=== PATIENT | female | born 1990 | race Caucasian/White ===

== ENCOUNTER → 2017-11-17 | Outpatient (CLI) | payer BC ==
[~2017-11-17] MED LIST: GADOBUTROL 10 ML VIAL IVP ONE
== END ==
LOC: FIMAGING 09:34
PROVIDERS: ATTEND Internal Medicine Hematology & Oncology
DX: Z15.01 Genetic susceptibility to malignant neoplasm of breast (principal)
CPT/HCPCS: 0159T; A9585; C8908

== ENCOUNTER → 2017-11-18 | Outpatient (CLI) | payer BC | LOC: FIMAGING 09:27 | PROVIDERS: ATTEND Internal Medicine Hematology & Oncology | DX: Z12.31 Encounter for screening mammogram for malignant neoplasm of breast (principal); Z15.01 Genetic susceptibility to malignant neoplasm of breast | CPT/HCPCS: 0159T; A9585; C8908 ==

== ENCOUNTER → 2018-02-01 | Outpatient (CLI) | payer BC | LOC: FIMAGING 11:30 | PROVIDERS: ATTEND Internal Medicine Hematology & Oncology | DX: N63.10 Unspecified lump in the right breast, unspecified quadrant (principal); Z15.01 Genetic susceptibility to malignant neoplasm of breast ==

== ENCOUNTER → 2018-02-03 | Outpatient (CLI) | payer BC ==
[~2018-02-03] MED LIST changes: +BUPIVACAINE 0.5% 10 ML SDV ONE; -GADOBUTROL 10 ML VIAL IVP ONE; +LIDOCAINE 1% 300 MG/30 ML SDV ONE; +THROMBIN (BOVINE) 5,000 UNIT VIAL TP ONE
== END ==
LOC: FIMAGING 07:15
PROVIDERS: ATTEND Internal Medicine Hematology & Oncology
PROC: 0HBT3ZX Excision of Right Breast, Percutaneous Approach, Diagnostic (ICD-10-PCS; principal; 2018-02-03)
DX: C50.911 Malignant neoplasm of unspecified site of right female breast (principal)

== ENCOUNTER 2018-04-16 09:11 | Day surgery (SDC) | payer BC ==
[2018-04-16] MEDS ORDERED: fentaNYL 100 MCG/2 ML INJ IVP PRN (09:20)
[2018-04-16] MEDS ORDERED: FLUMAZENIL 0.5 MG/5 ML MDV IVP PRN (09:20)
[2018-04-16] MEDS ORDERED: MEPERIDINE 25 MG/ML SYR IVP PRN (09:20)
[2018-04-16] MEDS ORDERED: NALOXONE HCL 0.4 MG/ML INJ IVP PRN (09:20)
[2018-04-16] MEDS ORDERED: MIDAZOLAM 2 MG/2 ML VIAL IVP PRN (09:20)
[2018-04-16] MEDS ORDERED: NS 1,000 ML IV SCH (09:30)
[2018-04-16] MEDS ORDERED: LIDOCAINE 1% 300 MG/30 ML SDV ONE (10:16)
[2018-04-16] MEDS ORDERED: CEFAZOLIN 1 GM/DEXTROSE/50 ML BAG IV ONE (10:34)
--- NOTE | 2018-04-16 10:52 | PDPROPOC ---
Sedation Plan of Care Sedation Plan of Care: vital signs stable, mental status noted, patient educated of risks, benefits, alternatives, patient can tolerate sedation ASA Classification: ASA 2 Planned drugs: fentanyl, midazolam Mallampati Score: Class 1 Mallampati Reference Image: Patient passed 3-3-2 rule?: Yes
--- NOTE | 2018-04-16 10:53 | PDRADPRE ---
Radiology History & Physical Indication for procedure: cancer (Breast Cancer. Prefers slimline chest port) Home medications: Dexamethasone 2.5 mg 04/15/18 [Last Taken 04/15/18] Follistim Aq IM 04/15/18 [Last Taken 04/15/18] Letrozole 5 mg 04/15/18 [Last Taken 04/15/18] Menopur IM 04/15/18 [Last Taken 04/16/18] Ganirelix Acetate SC 04/16/18 [Last Taken 04/16/18] Allergies/Adverse Reactions: No Known Allergies Allergy (Verified 04/15/18 09:28) Mental status: A&Ox3 Heart exam: regular rate and rhythm Lungs exam: clear to auscultation Mallampati Score: Class 1
[2018-04-16] MEDS ORDERED: MIDAZOLAM 2 MG/2 ML VIAL ONE (11:47)
[2018-04-16] MEDS ORDERED: ACETAMINOPHEN 325 MG TAB PO PRN (12:29)
[2018-04-16] MEDS ORDERED: ONDANSETRON 4 MG/2 ML VIAL IVP PRN (12:29)
--- NOTE | 2018-04-16 12:29 | PDRADPN ---
Radiology Procedure Note Date of Procedure: 04/16/18 Radiologist: Adolfo Ocasio Anesthesia: IV Sedation Pre-op Diagnosis: Breast CA Post-op Diagnosis: Breast CA Indication: Breast CA Procedure: Chest port Finding(s): Patent left IJ. 6 Fr slimline chest POWER port placed without complication. Deep and running subcuticular closure with absorbable suture. OK to use now. Inf/Abcess present in the surg proc area at time of surgery?: No
[2018-04-16 13:14] VITALS: BP 118/70
[2018-04-16] MEDS ORDERED: BUPIVACAINE 0.5% 30 ML SDV ONE (13:51)
== END 2018-04-16 13:36 | disposition home or self-care (01) ==
LOC: FIMAGING 09:11
PROVIDERS: ATTEND Internal Medicine Hematology & Oncology
PROC: B5191ZZ Fluoroscopy of Inferior Vena Cava using Low Osmolar Contrast (ICD-10-PCS; principal; 2018-04-16 12:40)
PROC: B544ZZA Ultrasonography of Left Jugular Veins, Guidance (ICD-10-PCS; principal; 2018-04-16 12:40)
PROC: 0JH60XZ Insertion of Tunneled Vascular Access Device into Chest Subcutaneous Tissue and Fascia, Open Approach (ICD-10-PCS; principal; 2018-04-16 12:40)
PROC: 02HV33Z Insertion of Infusion Device into Superior Vena Cava, Percutaneous Approach (ICD-10-PCS; principal; 2018-04-16 12:40)
DX: C50.919 Malignant neoplasm of unspecified site of unspecified female breast (principal)
CPT/HCPCS: 36561; 77001; C1769; C1750; J0690; J1200; J1642; J2250; J2310; J3010

== ENCOUNTER 2018-06-14 18:06 | Inpatient (IN) | payer BC ==
[2018-06-14] MEDS ORDERED: VANCOMYCIN HCL/NORMAL SALINE 250 ML IV ONE (18:51)
[2018-06-14] MEDS ORDERED: CEFEPIME HCL 1 GM in NS 50 ML IV ONE (18:51)
--- NOTE | 2018-06-14 18:52 | EDPHY ---
HPI/HX/ROS/PE/MDM Narrative: CHIEF COMPLAINT: Fever HPI: The patient is a 28-year-old female with a history of breast cancer. She is currently on chemotherapy with Adriamycin and Cytoxan. She developed a low- grade fever at home today and was seen at the in [facility] office. That time she was found to have an extremely low white blood cell count and numerous labs and cultures were sent. She was given oral Levaquin and sent home. Upon arrival at home earlier today she developed fevers and chills then developed a temperature to 104 degree F. She was then told to present to the ER. Patient states that she has no new symptoms but has been having gradually increasing redness of the lateral aspect of her right mastectomy scar which has been progressing for multiple weeks. No discharge. The patient states that her son has a cough. REVIEW OF SYSTEMS: Aside from elements discussed in the HPI, a comprehensive 10-point review of systems was reviewed and is negative. PMH: Includes breast cancer, BRCA gene, history of bilateral mastectomy SOCIAL HISTORY: . Denies drug abuse. PHYSICAL EXAM: General:Patient is alert, in no acute distress. ENT:Eyes are normal to inspection. ENT inspection normal. Neck: Normal inspection. Full range of motion. Respiratory:No respiratory distress. Breath sounds normal bilaterally. Cardiovascular: Regular rate and rhythm. Strong peripheral pulses. Normal cap refill. Abdomen:The abdomen is nontender to palpation. There are no peritoneal signs. There are normal bowel sounds. Back: Normal to inspection. No tenderness to palpation. Skin: Right-sided mastectomy scar is clean dry and intact but there is some mild erythema and induration to the lateral aspect with very mild patchy rash lateral to the scar. No discharge noted. Extremities: Normal appearance. Full range of motion. Neuro: Oriented x3. Normal motor function. Normal sensory function. MDM: This patient presents with neutropenic fever. As such she requires admission the hospital for further workup and broad-spectrum antibiotics. I did not send additional labs as a full panel was drawn earlier today. I did order respiratory PCR and have ordered empiric antibiotics. The patient was accepted for admission by Dr. Carrie Edwards at 6:45 p.m. General Time Seen by Provider: 06/14/18 18:24 Initial Vital Signs: Initial Vital Signs Temperature (C) 38.9 C H 06/14/18 18:14 Heart Rate 102 H 06/14/18 18:14 Respiratory Rate 18 06/14/18 18:14 Blood Pressure 113/66 06/14/18 18:14 O2 Sat (%) 95 06/14/18 18:14 O2 Delivery Mode Room Air Allergies/Adverse Reactions: No Known Allergies Allergy (Verified 06/14/18 18:13) Home Medications: Medication Instructions Recorded Cyclophosphamide [Cytoxan] 0 mg IV AD 06/14/18 Doxepin HCl [SINEquan 10 MG (*)] 10 mg PO HS 06/14/18 Doxorubicin HCl [Adriamycin] 0 mg IV AD 06/14/18 LORazepam [Ativan (*)] 1 mg PO DAILY PRN 06/14/18 Ondansetron [Ondansetron Odt] 4 mg PO Q6 PRN 06/14/18 Prochlorperazine Maleate 10 mg PO Q6 PRN 06/14/18 [Compazine 10mg (*)] Departure - Departure Disposition: [facility] Clinical Impression: Neutropenic fever Condition: Fair
[2018-06-14] MEDS ORDERED: LORazepam 0.5 MG TAB PO PRN (19:58)
[2018-06-14] MEDS ORDERED: ONDANSETRON DISINTEGRATING 4 MG TAB PO PRN (19:58)
[2018-06-14] MEDS ORDERED: HYDROmorphONE/DILAUDID 1 MG/ML INJ IVP PRN (19:58)
[2018-06-14] MEDS ORDERED: LORazepam 1 MG TAB PO PRN (20:00)
[2018-06-14] MEDS ORDERED: PROCHLORPERAZINE MALEATE 10 MG TAB PO PRN (20:00)
[2018-06-14] MEDS ORDERED: ONDANSETRON 4 MG/2 ML VIAL ONE (20:11)
[2018-06-14] MEDS: ONDANSETRON 4 MG/2 ML VIAL IVP PRN (20:12)
[2018-06-14] MEDS: ACETAMINOPHEN 325 MG TAB PO PRN (21:44)
[2018-06-14] MEDS: IBUPROFEN 200 MG TAB PO PRN (22:40)
[2018-06-14] MEDS: DOXEPIN HCL 10 MG CAP PO SCH (22:40)
--- NOTE | 2018-06-14 22:44 | PDGENHP ---
History and Physical - Chief Complaint fever - History of Present Illness Patient is a 28 yo F with PMH of breast cancer and BRCA mutation presenting with fever to 104 at home. Patient was seen earlier in the ER for similar issues , but at that time her temperature was only mildly elevated, she went home and proceeded to get worse with fever increasing to 104. She notes she completed her 4th round of chemo with adriamycin/cytoxan 6 days ago and has felt worse this time than her prior bouts of chemo, she notes each cycle was slightly worse than the one before. She has not had any pain, no cough or sob, no rash, no abd pain or n/v. She denies changes in urination or bowel movements. She did have shaking chills earlier in the day and has been having intermittent GUIDO when the fever spikes. She has been eating and drinking ok. History Information - Allergies/Home Medication List Allergies/Adverse Reactions: No Known Allergies Allergy (Verified 06/14/18 18:13) Home Medications: Cyclophosphamide [Cytoxan] 0 mg IV AD 06/14/18 [Last Taken 06/07/18] Doxepin HCl [SINEquan 10 MG (*)] 10 mg PO HS 06/14/18 [Last Taken 06/13/18] Doxorubicin HCl [Adriamycin] 0 mg IV AD 06/14/18 [Last Taken 06/07/18] LORazepam [Ativan (*)] 1 mg PO DAILY PRN 06/14/18 [Last Taken Unknown] Ondansetron [Ondansetron Odt] 4 mg PO Q6 PRN 06/14/18 [Last Taken 06/13/18] Prochlorperazine Maleate [Compazine 10mg (*)] 10 mg PO Q6 PRN 06/14/18 [Last Taken 06/14/18] I have personally reviewed and updated: family history, medical history, social history, surgical history - Past Medical History cancer (breast ) - Surgical History Reports: mastectomy (bilateral with LN disection) - Family History Positive for: non-pertinent - Social History Smoking Status: Never smoked Alcohol Use: None Drug Use: None Additional social history: , 2 year old child Review of Systems Review of Systems: ROS: 10pt was reviewed & negative except for what was stated in HPI & below Physical Exam Physical Exam: Temp Pulse Resp BP Pulse Ox 39.6 C H 96 16 114/66 98 11/05/18 21:27 06/14/18 21:27 06/14/18 21:27 06/14/18 21:27 06/14/18 21:27 Constitutional: no apparent distress, appears nourished Eyes: PERRL, anicteric sclera Ears, Nose, Mouth, Throat: moist mucous membranes, hearing normal Cardiovascular: regular rate and rhythym, no murmur, rub, or gallop, No edema Respiratory: no respiratory distress, no rales or rhonchi, clear to auscultation Gastrointestinal: normoactive bowel sounds, soft, non-tender abdomen Genitourinary: no bladder tenderness Skin: warm, normal color Musculoskeletal: full muscle strength, no muscle tenderness Neurologic: AAOx3 Psychiatric: interacting appropriately, not anxious, not encephalopathic Assessment & Plan Assessment: Neutropenic fever (Acute) 28 yo F with breast cancer currently undergoing chemotherapy presenting with neutropenic fevere # neutropenic fever: with ANC of 0.03 and fever to 104 at home, no localizing sxs. Cultures drawn earlier in the day, resp pcr negative UA negative, chest xray not yet taken but ordered and pending. Patient is followed by Dr. Lee of oncology who is aware of her hospitalization and onc will follow while in house. Started on vanc/cefepime for now. Patient non toxic appearing # sepsis: patient meeting criteria for sepsis with fever and low wbc, as above source unclear but treating broadly, cultures pending, HD stable # breast cancer: with hx of bilateral mastectomy s/p reconstruction, currently undergoing chemo with adriamycin and cytoxan as above # anemia: related to chemo as well, will trend, not currently in need of transfusion # IP status, will require > 48 hours stay for eval/mgmt of above Patient new to my care. Old records reviewed and summarized as above. Care plan reviewed with ER doctor. Further hx obtained from patients present at bedside.
[2018-06-15] MEDS: NS 1,000 ML IV SCH ×2 (00:35→18:15)
[2018-06-15] MEDS: CEFEPIME HCL 2 GM in NS 100 ML IV SCH ×3 (04:40→20:10)
[2018-06-15] MEDS: ACETAMINOPHEN 325 MG TAB PO PRN ×4 (04:49→20:09)
[2018-06-15 05:16] LABS: PLATELET COUNT 127 10^3/uL (150-400)
[2018-06-15] MEDS ORDERED: VANCOMYCIN 750 MG in D5W 150 ML IV SCH (07:00)
[2018-06-15] MEDS: IBUPROFEN 200 MG TAB PO PRN ×3 (07:51→23:05)
--- NOTE | 2018-06-15 08:09 | PDMN ---
Medical Necessity Medical necessity: MCG: M160 sepsis and other febrile illness: Neutopenic fever , sepsis, HX of Br. Ca, currently on chemo, anemia, anticipate > 2 MN ongoing med nec care
[2018-06-15] MEDS: oxyCODONE IR 5 MG TAB PO PRN (08:43)
[2018-06-15] MEDS: ONDANSETRON 4 MG/2 ML VIAL IVP PRN ×2 (08:54→20:52)
[2018-06-15] MEDS: HYDROCODONE/APAP 5/325 TAB PO PRN ×2 (08:55→15:04)
--- NOTE | 2018-06-15 11:30 | GCON ---
REASON FOR CONSULTATION: Neutropenic fever in the setting of adjuvant therapy for breast cancer. HISTORY OF PRESENT ILLNESS: The patient is a very pleasant 28-year-old female with who carries a BRCA mutation and is currently undergoing adjuvant chemotherapy for stage I breast cancer and now admitted with neutropenic fever. Monica was diagnosed with a stage IA (T1c N0 M0) invasive ductal carcinoma in November 2017. The tumor was grade 3, ER positive, UT negative, and HER2 negative with a Ki-67 of 80%. She underwent bilateral mastectomies with sentinel node biopsy on March 12 and had direct implant reconstruction. Her surgery was done in [place]. Four sentinel lymph nodes were sampled and were negative. She started on dose dense AC Taxol on April 26. She is currently day 8, cycle 4, of Adriamycin and Cytoxan. She tolerated the first 3 cycles relatively well without any major cytopenias. She was seen in the office yesterday with a 1-day history of a slight sore throat and just generally feeling slightly ill. Her temperature was 99.2. She was noted to have a white blood cell count of 0.3 with an absolute neutrophil count of 0. She was given hydration, cultured, and started on empiric prophylactic Levaquin. Later that evening she developed a fever of 104.0. She was referred to the emergency room. In the emergency room, she did not receive any additional cultures. A chest x-ray was unremarkable. She was started on vancomycin and cefepime. Overnight, the patient has continued to have high fevers up to 104. She is very diaphoretic. She has a bit of a scratchy throat and a little bit of a headache. She denies any shortness of breath or cough, diarrhea, dysuria, or any other localizing symptoms. She has a 2-1/2-year-old son who has a mild illness at home, but is not on antibiotics, and he felt to presumably have a viral infection. She was tested for influenza yesterday in the office, as well as strep, all of which were negative. A urinalysis in the office was negative as well. The only finding that might be slightly different is she has noted some very minimal erythema along the far lateral aspect of her right mastectomy incision. There is no purulence. No fluctuance. She and her took a photo of it a day or two ago, and to my eye, it does not look significantly different. PAST MEDICAL HISTORY: Unremarkable. PAST SURGICAL HISTORY: Bilateral mastectomies with sentinel node sampling. FAMILY HISTORY: Notable for Mother having breast cancer at age 47 and ovarian cancer in her 60s. Her mother is a BRCA1 carrier. A maternal grandfather had some type of unknown cancer. SOCIAL HISTORY: The patient does not smoke. She is . She drinks alcohol occasionally. She lives in [place]. She has a 2-year-old son. REVIEW OF SYSTEMS: A 10-point review of systems is negative, other than HPI. PHYSICAL EXAM: GENERAL: She is an uncomfortable-appearing female, lying in bed , somewhat diaphoretic. VITAL SIGNS: Blood pressure 106/53, heart rate 105, temperature 39.5. HEENT: Pupils are equal. Sclerae anicteric. Oropharynx is clear, without mucositis or thrush. LUNGS: Clear to auscultation. HEART: Regular rate. ABDOMEN: Soft, nontender. CHEST: Bilateral mastectomy incisions without erythema, other than some very mild erythema on the far lateral aspect of the right incision. It is nontender to palpation. EXTREMITIES: No edema. Port site is unremarkable. LABORATORY DATA: White blood cell count 0.2, hematocrit 23.9, platelets 127. Absolute neutrophil count is 0. Metabolic panel is negative. IMPRESSION: This is a 28-year-old BRCA1 carrier with early stage I breast cancer, admitted now with neutropenic fever, day 8, cycle 4 of Adriamycin and Cytoxan. The patient's son is ill at home, possibly with a viral infection. There are no specific localizing signs or symptoms, other than a mild sore throat, headache, and some very mild erythema along the lateral aspect of her right mastectomy incision. She has been pancultured and started on broad- spectrum antibiotics. Flu swab and strep swabs were negative yesterday in the office. The patient is hemodynamically stable, albeit quite uncomfortable with these high fevers. Infectious Disease has been asked to consult. For now, will continue on vancomycin and cefepime. The erythema at the mastectomy site needs to be carefully monitored, especially as the white blood cell count recovers. We will continue to follow along with you. /[id number]/MODL MTDD
--- NOTE | 2018-06-15 14:04 | HOSPPROG ---
Hospitalist Progress Note Assessment/Plan: 28 yo F with breast cancer currently undergoing chemotherapy presenting with neutropenic fevere # neutropenic fever: with ANC of 0.01 today and continued fever overnight. Cultures with ngtd, resp pcr negative UA negative, cxr personally reviewed and negative. Continued on vanc/cefepime for now. Care plan reviewed with Dr. Lee including plan for ID consult. # sepsis: patient meeting criteria for sepsis with fever and low wbc, as above source unclear but treating broadly, cultures pending, HD stable # breast cancer: with hx of bilateral mastectomy s/p reconstruction, currently undergoing chemo with adriamycin and cytoxan as above # anemia: related to chemo as well, trending # IP status, will require > 48 hours stay for eval/mgmt of above Subjective: patient continues to feel poorly with fevers overnight but no new sxs, no cough, sob, urinary complaints Objective: Vital Signs Temp Pulse Resp BP Pulse Ox 36.9 C 87 14 91/55 L 98 06/15/18 11:12 06/15/18 11:12 06/15/18 11:12 06/15/18 11:12 06/15/18 11:12 Microbiology 06/14/18 19:00 Respiratory Panel (PCR) - Final Nasal, Sinus - Swab No Organism Detected Laboratory Results 06/15/18 04:39 06/15/18 04:39 06/14/18 06/15/18 06/16/18 05:59 05:59 05:59 Intake Total 783 Output Total 1500 Balance -717 Constitutional: no apparent distress, appears nourished Eyes: PERRL, anicteric sclera Ears, Nose, Mouth, Throat: moist mucous membranes, hearing normal Cardiovascular: regular rate and rhythym, no murmur, rub, or gallop, No edema Respiratory: no respiratory distress, no rales or rhonchi, clear to auscultation Gastrointestinal: normoactive bowel sounds, soft, non-tender abdomen Genitourinary: no bladder tenderness Skin: warm, normal color Musculoskeletal: full muscle strength, no muscle tenderness Neurologic: AAOx3 Psychiatric: interacting appropriately, not anxious, not encephalopathic ICD10 Worksheet Patient Problems: Problems Problem Status Onset Neutropenic fever Acute
--- NOTE | 2018-06-15 14:25 | ASMTCMCOM ---
CM Note CM Note Notes: Chart reviewed. 28 year old female with dx of breast ca s/p mastectomy and presents with neutropenic fever after 4rth round of chemotherapy. No identified needs at this time. CM to follow for needs. Plan: Likely dc home independently when medically cleared. Date Signed: 06/15/2018 02:25 PM Electronically Signed By:Imelda Wood RN
--- NOTE | 2018-06-15 16:32 | GCON ---
INFECTIOUS DISEASE CONSULTATION DATE OF CONSULTATION: 06/15/2018 REFERRING PHYSICIAN: Liv Lee MD REASON FOR CONSULTATION: Neutropenic fever. HISTORY OF PRESENT ILLNESS: Patient is a 28-year-old female with a past medical history of breast ca ncer, status post bilateral mastectomy with immediate reconstruction in early March who I am asked t o see in consultation for neutropenic fever. The patient has been receiving chemotherapy with Adriam ycin and Cytoxan of which she recently completed her fourth cycle. She received Neulasta with her emotherapy. She has not had previous episodes of neutropenia. Yesterday, patient was seen in the office with a 1-day history of fatigue, malaise, and mild sore thr oat. At that time, she had a temperature of 99.2. Laboratory evaluation revealed the presence of ne utropenia. The patient received hydration and was started on empiric levofloxacin. After returning home, she developed a fever to 104 prompting admission to the hospital. She did not initiate levoflo xacin as her fever onset preceding ability to do so. Evaluation, included blood cultures in the office yesterday, which are no growth to date. She had in fluenza testing by PCR and respiratory pathogen panel by PCR were both negative. Chest x-ray showed no infiltrates. She was started empirically on vancomycin and cefepime. The patient does have a por t in the left upper chest without pain, redness, or drainage. She does describe having approximately 2 days of pain over her lateral right breast incision with associated erythema. She felt like she c ould see a stitch, but this is no longer visible. She has not had any active drainage. The area is mildly tender to palpation. She does have a 2-1/2-year-old son who has had a mild cold at home. He does attend daycare. She najera s not describe dysuria or difficulty with urination. She has had nausea with some vomiting, but no d iarrhea. No abdominal pain. She has not noted diffuse skin rash. She does have significant rigors associated with her fever, which has frequently been in the 39 degree range post-hospitalization. Gi martha the above findings, I am now asked to assist in her ongoing management. PAST MEDICAL HISTORY: Breast cancer as above, BRCA1 carrier. PAST SURGICAL HISTORY: Bilateral mastectomy with reconstruction and sentinel lymph node biopsy on right. CURRENT MEDICATIONS: Vancomycin 1 g IV q.12 hours, cefepime 2 g IV q.8 hours, doxepin 10 mg p.o. q.h .s., Motrin as needed for fever, [place] as needed for pain or fever, Tylenol as needed for fever. ALLERGIES: No known drug allergies. SOCIAL HISTORY: Patient does not smoke. She previously used alcohol once per week. She does use me dical marijuana. There is a pet dog at home with no bites or scratches. No recent travel history. FAMILY HISTORY: Mother with breast and ovarian cancer. REVIEW OF SYSTEMS: Outside that noted in the HPI, the remainder of 10-system review is unremarkable. PHYSICAL EXAMINATION: VITAL SIGNS: Temperature maximum 39.5, temperature current 36.9, heart rate 8 7, respiratory rate 14, blood pressure 91/55, oxygen saturation 98% on room air. GENERAL: Patient i s ill-appearing with rigors. HEENT: There is no scleral icterus, conjunctival injection, or conjunc tival petechiae. Oropharynx shows moist mucous membranes with no mucositis. Difficult to visualize tonsils and patient cannot tolerate exam with tongue depressor. No nasal discharge. No sinus tender ness. NECK: Supple without palpable lymphadenopathy or thyromegaly. CHEST: Clear to auscultation bilaterally without adventitious sounds. Respiratory effort is normal. There is a port in the left upper chest without erythema, drainage or tenderness. CARDIOVASCULAR: Tachycardic, with a 2/6 systo lic ejection murmur heard at the left and right upper sternal border. No gallops or rubs noted. RYAN ASTS: Right lateral breast incision with small area of erythema and shallow ulceration; no visible s utures; no palpable fluctuance or drainage. Mildly tender to palpation. There are 2 patches of eryt bonnie in the right lateral chest wall, which are nontender. Axillary incision is well healed. MUSCUL OSKELETAL: No cyanosis, clubbing, or edema. SKIN: See breast exam. No stigmata of endocarditis. Skin is diffusely warm to palpation. BACK: No tenderness along the cervical, thoracic, or lumbosacr al spine. No flank tenderness. NEUROLOGIC: Patient is alert and interacts appropriately with the e xaminer. Cranial nerves 2-12 are grossly intact. Sensation is grossly intact. Muscle tone and bulk are normal. LYMPHATIC: No cervical or supraclavicular nodes palpable. No tenderness in right axil la. LABORATORY/IMAGING: White blood cell count 0.26, hematocrit 23.9, platelets 127, neutrophils 4%, lym phocytes 69%. Venous lactate 1.6. Creatinine 0.6. AST 17, ALT 24, alkaline phosphatase 80, bilirub in 0.4, albumin 4.0. Influenza PCR is negative. Respiratory pathogen PCR is negative. Urinalysis i s negative. Group A strep screen and DNA are negative. Blood cultures x2 sets from 06/14/2018, and 06/15/2018, are currently pending. Chest x-ray shows no focal infiltrate. IMPRESSION: Neutropenic fever: Typical considerations for neutropenic fever, including gram-negativ e rods or gram-positive ang with potential for concomitant bacteremia of consideration. The patien t does have an indwelling port in place raising potential for line associated infection, although sit e does not show any findings. Additionally, she has mild area of erythema and tenderness along right lateral breast incision, which could serve as focal nidus for infection. If patient has persistent fever or this shows further inflammatory change, we will proceed with ultrasound to assess for any un derlying fluid collections. Agree as outlined by Dr. Lee, this potentially could worsen as neutro phils recover. She is currently covered broadly with vancomycin, cefepime, which provides activity f or both gram-positive and gram-negative ang typically associated with neutropenic fever. Viral syn drome also would be of consideration. RECOMMENDATIONS: 1. Agree with continued vancomycin and cefepime. 2. Follow up blood cultures as available. 3. Follow right breast exam with plans for ultrasound if persistent fever of unidentified etiology a nd persistent breast symptomatology. 4. Recovery of absolute neutrophil count will be of critical importance in resolution of neutropenic fever. Thank you for this consultation. We will continue to follow the patient with you. /[id number]/MODL
[2018-06-15] MEDS: VANCOMYCIN HCL/NORMAL SALINE 250 ML IV SCH (18:43)
[2018-06-15] MEDS: DOXEPIN HCL 10 MG CAP PO SCH (20:09)
[2018-06-15] MEDS: PROMETHAZINE HCL 25 MG/ML INJ IVP PRN (22:07)
[2018-06-16] MEDS: IBUPROFEN 200 MG TAB PO PRN ×3 (03:22→19:59)
[2018-06-16] MEDS: ONDANSETRON 4 MG/2 ML VIAL IVP PRN (03:27)
[2018-06-16] MEDS: NS 1,000 ML IV SCH ×3 (03:33→23:56)
[2018-06-16] MEDS: PROMETHAZINE HCL 25 MG/ML INJ IVP PRN ×3 (03:40→18:01)
[2018-06-16] MEDS: CEFEPIME HCL 2 GM in NS 100 ML IV SCH ×3 (04:19→12:18)
[2018-06-16] MEDS: LORazepam 2 MG/ML INJ IVP PRN ×4 (05:27→19:48)
[2018-06-16] MEDS: ACETAMINOPHEN 325 MG TAB PO PRN (05:27)
[2018-06-16 06:20] LABS: PLATELET COUNT 116 10^3/uL (150-400)
[2018-06-16] MEDS: VANCOMYCIN HCL/NORMAL SALINE 250 ML IV SCH ×2 (08:21→19:14)
--- NOTE | 2018-06-16 11:47 | HOSPPROG ---
Hospitalist Progress Note Assessment/Plan: 28 yo F w breast CA here w febrile neutropenia 28 yo F with breast cancer currently undergoing chemotherapy presenting with neutropenic fevere neutropenic fever: with ANC of 0.01 today and continued fever overnight. Cultures with ngtd, resp pcr negative UA negative, cxr personally reviewed and negative. Continued on vanc/cefepime for now. Care plan reviewed with Dr. Lee ID seing stitch abscess: chronic, warm (but shis febrile) will have surgery see briefly sepsis: patient meeting criteria for sepsis with fever and low wbc, as above source unclear but treating broadly, cultures pending, HD stable breast cancer: with hx of bilateral mastectomy s/p reconstruction, currently undergoing chemo with adriamycin and cytoxan as above anemia: related to chemo as well, trending IP status, will require > 48 hours stay for eval/mgmt of above Subjective: case d/w dr lee. remains febrile. culture data neg thus far Objective: Vital Signs Temp Pulse Resp BP Pulse Ox 39.2 C H 107 H 16 112/72 96 06/16/18 10:39 06/16/18 10:39 06/16/18 10:39 06/16/18 10:39 06/16/18 10:39 Laboratory Results 06/16/18 05:45 06/15/18 04:39 06/15/18 06/16/18 06/17/18 05:59 05:59 05:59 Intake Total 783 2300 Output Total 1500 905 Balance -717 1395 - Physical Exam Constitutional: no apparent distress, appears nourished Eyes: PERRL, anicteric sclera Ears, Nose, Mouth, Throat: moist mucous membranes, hearing normal Cardiovascular: no murmur, rub, or gallop, tachycardia Respiratory: no respiratory distress, no rales or rhonchi Gastrointestinal: normoactive bowel sounds, soft, non-tender abdomen Genitourinary: no bladder fullness, No astudillo in urethra Skin: other (R breast w small nodular area- has been there a bit. no cellulitis , warm) Musculoskeletal: full muscle strength, no muscle tenderness Neurologic: AAOx3 Psychiatric: interacting appropriately, not anxious ICD10 Worksheet Patient Problems: Problems Problem Status Onset Neutropenic fever Acute
--- NOTE | 2018-06-16 12:08 | PCMIDPN ---
Assessment/Plan: Assessment/Plan: * Neutropenic fever: Persistent fever with ongoing neutropenia. Small amount of purulence expressed from lateral right breast incision. Purulent material sent for culture. Will proceed with ultrasound of this region to assess for deeper seated fluid collection along incision line or around implants. Agree with surgical consultation as well. Patient also with some nausea and limited abdominal cramping which has resolved - if abdominal cramping recurs or persists , then would proceed with CT of abdomen and pelvis to assess for neutropenic enterocolitis. Will continue empiric vancomycin and in transition cefepime to meropenem for added anaerobic activity (favor this over addition of metronidazole given patient's nausea). Vancomycin trough less than 5 but this was measured after 2 doses of 750 mg q.12 and 1 dose of 1 g. Will therefore repeat after patient has been receiving 1 g Q 12 more regularly. Blood cultures remain no growth including those obtained on 06/14/2018 at [facility]. Time spent, greater than 35 min, which greater than half was spent in education/ counseling/coordination of care related to neutropenic fever and plan of care including breast ultrasound and modification of antibiotic therapy. Clinical findings and plan were reviewed with patient and Dr. Mendoza as well as nursing staff. 06/16/18 12:05 06/16/18 12:22 06/16/18 12:23 06/16/18 12:25 Subjective: Patient with less discomfort around right breast incision. Complains of ongoing fever and rigors. Complains of vomiting beginning last evening. Patient describes 2 episodes of mild crampy abdominal pain which is now resolved. Objective: Vital Signs Temp Pulse Resp BP Pulse Ox 37.8 C 125 H 18 111/61 93 06/16/18 11:46 06/16/18 11:46 06/16/18 11:46 06/16/18 11:46 06/16/18 11:46 Laboratory Results 06/16/18 05:45 06/15/18 04:39 06/15/18 06/16/18 06/17/18 05:59 05:59 05:59 Intake Total 783 2300 Output Total 1500 905 Balance -717 1395 Vancomycin # 2 Ceftriaxone # 2 Vancomycin trough less than 5 Blood cultures x2 06/14 and 06/15 no growth to date - Physical Exam General Appearance: alert, no apparent distress, non-toxic, other (Fatigued appearance) EENT: No scleral icterus, No thrush, No conjunctival petechiae Respiratory: lungs clear, other (Port nontender without erythema), No respiratory distress Cardiac/Chest: tachycardia Extremities: inflammation (Small scab over left index finger without tenderness) Abdomen: non-tender, No distended Skin: other (Flushed appearance over chest and abdomen) Neuro/Psych: No confused ICD10 Worksheet Patient Problems: Problems Problem Status Onset Neutropenic fever Acute
[2018-06-16] MEDS: MEROPENEM 1 GM in NS 100 ML IV SCH ×3 (12:54→21:32)
[2018-06-16] MEDS: ACETAMINOPHEN 500 MG TAB PO SCH ×2 (14:11→21:31)
--- NOTE | 2018-06-16 15:18 | SOAPPROG ---
SOAP Progress Note Assessment/Plan: A/P: * Neutropenic fever: ?skin source (right breast). May see more manifestations as WBC recovers. - recd Neulasta - cont broad spectrum abx - f/u would GS/cx - watch perirectal area * St. IA (T1c) breast cancer, ER+/HER2 neg. C4D9 DD AC with Neulasta. ANC should start recovering soon. * Nausea: antiemetics. * BRCA carrier. 06/16/18 15:22 Subjective: Continued nausea, particularly with port use. Some perirectal tenderness. No significant mucositis. No diarrhea. O: VS reviewed. Tm 39.2 Gen: A&O, fatigued appearing. Lungs: CTA. Abd: nontender, soft. Rectal: sl tenderness 5:00, likely hemorrhoid tag 6:00. Neuro: nonfocal. Skin: left port nontender. Breast: right lateral mastectomy incision with mild induration. Laboratory Tests 06/15/18 06/16/18 04:39 05:45 WBC 0.34 L* Hgb 8.1 L Plt Count 116 L Sodium 136 Potassium 4.0 Chloride 105 Carbon Dioxide 22 BUN 9 Creatinine 0.6 Glucose 105 H Objective: Vital Signs Temp Pulse Resp BP Pulse Ox 38.7 C H 104 H 16 100/62 96 06/16/18 14:14 06/16/18 14:14 06/16/18 14:14 06/16/18 14:14 06/16/18 14:14 Laboratory Results 06/16/18 05:45 06/15/18 04:39 06/15/18 06/16/18 06/17/18 05:59 05:59 05:59 Intake Total 783 2300 Output Total 1500 905 600 Balance -717 1395 -600 ICD10 Worksheet Patient Problems: Problems Problem Status Onset Neutropenic fever Acute
--- NOTE | 2018-06-16 16:17 | PDCONSULT ---
Straw Boss Note: 28 y/o female admitted for neutropenic fever after her fourth cycle of AC for a stage I right breast cancer. She is s/p bilateral nipple sparing mastectomy with Alloderm reconstruction in March and her drains came out 2 weeks post op. She noticed a suture protruding from the right lateral reconstruction incision and contacted her plastic surgeon and was instructed to leave it alone. She denies pain in her reconstructed breast but has pain in the lateral inframammary fold on the right. PE T 38.7 P 100 R 14 slender young woman in mild distress/ at her bedside focused right breast exam: NSM/implant recon 1 x 1.5 cm area of erythema, induration with a small central pinpoint opening, clear fluid can be expressed the skin was prepped with chlorhexidine and the opening gently probed with a pair of forceps, no suture material identified remainder of breast reconstruction nicely healed wbc <.5 ultrasound: no fluid collection Imp: superficial right inframammary skin infection adjacent to prior breast reconstruction/possibly started as a suture granuloma. Rec: continue IV Abx per ID consult plastic surgery if infection worsens as she is at high risk for implant loss Oswald Pardo MD, FACS
--- NOTE | 2018-06-16 18:20 | GDS ---
REASON FOR CONSULTATION: 1. Neutropenic fever, status post bilateral nipple-sparing mastectomies for breast cancer. 2. Right inferior lateral breast stitch abscess. BRIEF CLINICAL HISTORY: The patient is a 28-year-old white female who recently moved from the [facility] [place] after undergoing a bilateral nipple-sparing mastectomy with immediate implant and AlloDerm recon struction. She had been doing well. She is undergoing chemotherapy here under the care of Dr. Liv Lee. She was admitted with neutropenic fever yesterday. General Surgery was consulted secondary to a small suture abscess that the patient has been monitoring but has recently become more inflamed. I was contacted earlier by Dr. Randolph Pardo, to participate in her care. She is currently admitted a nd undergoing neutropenic precautions and workup for her fever. On examination, the breast reconstru ction appears uninvolved at this time, but she appears to have a small suture granuloma at the inferi or right aspect of her incision that is not contiguous with it or appears to be spreading to the impl ant pocket. Given her immunocompromised position and the nonthreatening nature of the suture abscess , I will plan to deal with this once she has recovered on an outpatient basis. She can follow up at my office upon discharge and I will plan to I and D the area under local anesthesia in the office. I f her condition is worse in the breast, as to turn red, or she has other clinical changes, we could c onsider earlier I and D of the lesion. However, I think this would put her breast reconstruction at a greater risk of long-term compromise. She was given my contact information for my office as well a s my cell phone and will contact me upon discharge to arrange future followup. /[id number]/MODL
[2018-06-16] MEDS: SENNOSIDES 1 TAB PO SCH (19:59)
[2018-06-16] MEDS: DOCUSATE SODIUM 100 MG CAP PO SCH (19:59)
[2018-06-16] MEDS: DOXEPIN HCL 10 MG CAP PO SCH (19:59)
[2018-06-16] MEDS: NYSTATIN SUSP 500000 UNIT/5 ML UD LIQ PO SCH (21:32)
[2018-06-17] MEDS: PROMETHAZINE HCL 25 MG/ML INJ IVP PRN ×2 (02:25→11:56)
[2018-06-17] MEDS: NYSTATIN SUSP 500000 UNIT/5 ML UD LIQ PO SCH ×4 (02:59→21:02)
[2018-06-17] MEDS: LORazepam 2 MG/ML INJ IVP PRN ×3 (03:06→21:01)
[2018-06-17] MEDS: IBUPROFEN 200 MG TAB PO PRN ×2 (03:10→11:57)
[2018-06-17] MEDS: MEROPENEM 1 GM in NS 100 ML IV SCH ×3 (04:52→22:19)
[2018-06-17] MEDS: ACETAMINOPHEN 500 MG TAB PO SCH ×3 (04:55→21:02)
[2018-06-17 05:40] LABS: PLATELET COUNT 116 10^3/uL (150-400)
[2018-06-17] MEDS: VANCOMYCIN HCL/NORMAL SALINE 250 ML IV SCH (06:28)
[2018-06-17] MEDS: ONDANSETRON 4 MG/2 ML VIAL IVP PRN (06:31)
--- NOTE | 2018-06-17 08:02 | PCMIDPN ---
Assessment/Plan: #Neutropenic fever, febrile this a.m. to 39.4 ANC 100. R breast US no cecilia abscess, minimal tissue b/t implant and skin. DDx of fever includes R breast infection vs typhilitis --broadened abx yesterday to meropenem w increase GI sx. Abdomen soft, no diarrhea. Hold off on GI imaging unless Onc feels strongly --continue vancomycin in light of breast infection and GPCs seen on gram stain of R breast fluid --if continued fever tomorrow will plan repeat blood cx and consider adding antifungal therapy #Stage IA (T1c) breast cancer, ER+/HER2 neg s/p B mastectomy and reconstruction #Anemia and thrombocytopenia: stable, likely related to chemo Medications Meropenem 1 g IV Q 8, # 1 Vancomycin 1 g IV q.12, #3 micro 06/16 breast cx: GPC on gram stain; cx pending 06/15 blood cx (2) NGTD 06/15 resp PCR neg Subjective: patient vomiting overnight mild mouth pain no abdominal pain or diarrhea Objective: Vital Signs Temp Pulse Resp BP Pulse Ox 38.2 C 91 18 120/74 92 06/17/18 06:31 06/17/18 04:00 06/17/18 04:00 06/17/18 04:00 06/17/18 04:00 Microbiology 06/16/18 12:00 Gram Stain - Final Breast - Swab Laboratory Results 06/17/18 05:09 06/17/18 05:09 06/16/18 06/17/18 06/18/18 05:59 05:59 05:59 Intake Total 2300 2295 Output Total 905 3126 Balance 1395 -831 - Physical Exam General Appearance: alert, no apparent distress, thin, non-toxic EENT: pale conjunctiva, other (good dentition), No scleral icterus, No thrush Respiratory: lungs clear, No accessory muscle use Neck: supple Cardiac/Chest: regular rate, rhythm, systolic murmur Extremities: No pedal edema, No inflammation, No swelling Abdomen: normal bowel sounds, non-tender, soft, No guarding, No peritoneal signs Skin: pallor, No rash Neuro/Psych: alert, normal mood/affect, oriented x 3 - Line/s Lambert Lines: No drainage, No erythema - Time Spent With Patient Time Spent with Patient: greater than 35 minutes (reviewed plan of care with patient and at bedside) Time Spent with Patient: Greater than 35 minutes spent on this patients care, greater than 50% of time spent counseling, educating, and coordinating care regarding the above mentioned plan. ICD10 Worksheet Patient Problems: Problems Problem Status Onset Neutropenic fever Acute
--- NOTE | 2018-06-17 10:15 | HOSPPROG ---
Hospitalist Progress Note Assessment/Plan: 28 yo F w breast CA here w febrile neutropenia 28 yo F with breast cancer currently undergoing chemotherapy presenting with neutropenic fevere neutropenic fever: with ANC of 0.01 today and continued fever overnight. Cultures with ngtd, resp pcr negative UA negative, cxr personally reviewed and negative. Continued on vanc/cefepime for now. Care plan reviewed with Dr. Jesus mendez stitch abscess: chronic, warm (but she is febrile) seen by surgery and plastics outpatient follow up felt to be stitch granuloma minimal tissue between skin and implant noted sepsis: patient meeting criteria for sepsis with fever and low wbc, as above source unclear but treating broadly, cultures pending, HD stable breast cancer: with hx of bilateral mastectomy s/p reconstruction, currently undergoing chemo with adriamycin and cytoxan as above anemia: related to chemo as well, trending IP status, will require > 48 hours stay for eval/mgmt of above Subjective: case d/w dr ladd. febrile overnight. vomiting Objective: Vital Signs Temp Pulse Resp BP Pulse Ox 37.1 C 87 16 94/65 L 98 06/17/18 08:47 06/17/18 08:47 06/17/18 08:47 06/17/18 08:47 06/17/18 08:47 Microbiology 06/16/18 12:00 Gram Stain - Final Breast - Swab Laboratory Results 06/17/18 05:09 06/17/18 05:09 06/16/18 06/17/18 06/18/18 05:59 05:59 05:59 Intake Total 2300 2295 Output Total 905 3126 Balance 1395 -831 - Physical Exam Constitutional: no apparent distress, appears nourished Eyes: PERRL, anicteric sclera Ears, Nose, Mouth, Throat: moist mucous membranes, hearing normal Cardiovascular: regular rate and rhythym, no murmur, rub, or gallop, other (R inferolateral breast less red and warm) Respiratory: no respiratory distress, no rales or rhonchi Gastrointestinal: normoactive bowel sounds, soft, non-tender abdomen Genitourinary: no bladder fullness, No astudillo in urethra Skin: warm, normal color Musculoskeletal: full muscle strength Neurologic: AAOx3 ICD10 Worksheet Patient Problems: Problems Problem Status Onset Neutropenic fever Acute
[2018-06-17] MEDS: NS 1,000 ML IV SCH ×2 (10:36→19:22)
[2018-06-17] MEDS: SENNOSIDES 1 TAB PO SCH ×2 (13:35→21:02)
[2018-06-17] MEDS: DOCUSATE SODIUM 100 MG CAP PO SCH ×2 (13:35→21:02)
--- NOTE | 2018-06-17 15:06 | SOAPPROG ---
SOAP Progress Note Assessment/Plan: Assessment: SOAP Progress Note Assessment/Plan: A/P: * Neutropenic fever: unclear source. May see more manifestations as WBC recovers. - recd Neulasta - abx change per ID noted - f/u would GS/cx * St. IA (T1c) breast cancer, ER+/HER2 neg. C4D10 DD AC with Neulasta. ANC starting to recover. * Nausea: antiemetics. Likely not secondary to chemo this far out. suspect mostly anticipatory. Ativan most helpful. Will add PPI. * BRCA carrier. 06/16/18 15:22 Plan: 06/17/18 15:02 06/17/18 15:07 Subjective: teary, nauseated, weak Objective: Vital Signs Temp Pulse Resp BP Pulse Ox 38.1 C 91 16 113/72 97 06/17/18 13:35 06/17/18 12:00 06/17/18 08:47 06/17/18 12:00 06/17/18 12:00 Microbiology 06/16/18 12:00 Gram Stain - Final Breast - Swab Laboratory Results 06/17/18 05:09 06/17/18 05:09 06/16/18 06/17/18 06/18/18 05:59 05:59 05:59 Intake Total 2300 2295 Output Total 902 3126 Balance 1395 -831 Physical Exam - Physical Exam General Appearance: alert, other (tearful) Neck: supple Respiratory: lungs clear Abdomen: soft Skin: other (mild erythema on lateral mastectomy scar, does not appear obviously infectious) Neuro/Psych: alert ICD10 Worksheet Patient Problems: Problems Problem Status Onset Neutropenic fever Acute
[2018-06-17] MEDS: PANTOPRAZOLE SODIUM 40 MG VIAL IVP SCH (16:10)
--- NOTE | 2018-06-17 16:33 | ASMTCMCOM ---
CM Note CM Note Notes: Pt has small child at home. Given brochure for [facility]. Pt feels very supported by community and may not need further support, however stated she would read the brochure and we could do application in the morning if she is interested at that time. CM to follow. D/C plan: home with family support and possibly [facility] Date Signed: 06/17/2018 04:32 PM Electronically Signed By:Lavinia Campos
[2018-06-17] MEDS: DOXEPIN HCL 10 MG CAP PO SCH (21:02)
[2018-06-17] MEDS: HYDROCODONE/APAP 5/325 TAB PO PRN (22:19)
[2018-06-18] MEDS: HYDROCODONE/APAP 5/325 TAB PO PRN ×4 (04:23→18:36)
[2018-06-18] MEDS: CEPACOL LOZENGE PO PRN ×2 (04:57→08:21)
[2018-06-18] MEDS: NYSTATIN SUSP 500000 UNIT/5 ML UD LIQ PO SCH ×5 (05:01→21:50)
[2018-06-18] MEDS: MEROPENEM 1 GM in NS 100 ML IV SCH ×3 (05:01→21:50)
[2018-06-18] MEDS: ACETAMINOPHEN 500 MG TAB PO SCH ×3 (05:59→21:49)
[2018-06-18] MEDS: IBUPROFEN 200 MG TAB PO PRN ×2 (07:19→16:13)
[2018-06-18] MEDS: DOCUSATE SODIUM 100 MG CAP PO SCH ×2 (08:11→21:48)
[2018-06-18] MEDS: SENNOSIDES 1 TAB PO SCH ×2 (08:12→21:49)
[2018-06-18] MEDS: PANTOPRAZOLE SODIUM 40 MG VIAL IVP SCH (08:13)
[2018-06-18 08:48] LABS: PLATELET COUNT 118 10^3/uL (150-400)
--- NOTE | 2018-06-18 10:49 | PCMIDPN ---
Assessment/Plan: #Neutropenic fever, febrile yesterday PM to 39.5 ANC 400. R breast US no cecilia abscess, minimal tissue b/t implant and skin. Suspect due to R breast infection , cx shows MSSA --continue meropenem. Vancomycin dc'd yesterday --may be able to step down to Augmentin tomorrow. Would like leave her on it until abnormality R lateral breast can be evaluated by Dr. Rebolledo in clinic --recovery of ANC is near #Stage IA (T1c) breast cancer, ER+/HER2 neg s/p B mastectomy and reconstruction #Anemia and thrombocytopenia: stable, likely related to chemo Medications Meropenem 1 g IV Q 8, # 2 micro 06/16 breast cx: GPC on gram stain; cx MSSA 06/15 blood cx (2) NGTD 06/15 resp PCR neg Subjective: patient feeling better, hopeful to go home soon nausea resolved no diarrhea she feels like her fever is less frequent Objective: Vital Signs Temp Pulse Resp BP Pulse Ox 37.4 C 96 16 106/69 92 06/18/18 07:15 06/18/18 07:15 06/18/18 07:15 06/18/18 07:15 06/18/18 07:15 Microbiology 06/16/18 12:00 Gram Stain - Final Breast - Swab Laboratory Results 06/18/18 08:10 06/18/18 08:10 06/17/18 06/18/18 06/19/18 05:59 05:59 05:59 Intake Total 2295 2761 Output Total 3126 1000 Balance -831 1761 - Physical Exam General Appearance: alert, no apparent distress EENT: other (mild erythema posterior pharnyx, no ulcers or thrush noted) Respiratory: lungs clear, No accessory muscle use Neck: supple Cardiac/Chest: regular rate, rhythm, other (R breast lateral <1 cm area of swelling focal erythema, stitch palpable, no drainage today, no surrounding cellulitis) Extremities: No pedal edema Abdomen: normal bowel sounds, non-tender, soft Pelvic Exam: No astudillo Skin: pallor, No rash Neuro/Psych: alert, normal mood/affect, oriented x 3 - Line/s Lambert Lines: No drainage, No erythema - Time Spent With Patient Time Spent with Patient: greater than 35 minutes Time Spent with Patient: Greater than 35 minutes spent on this patients care, greater than 50% of time spent counseling, educating, and coordinating care regarding the above mentioned plan. ICD10 Worksheet Patient Problems: Problems Problem Status Onset Neutropenic fever Acute
[2018-06-18] MEDS: LORazepam 2 MG/ML INJ IVP PRN (11:40)
--- NOTE | 2018-06-18 12:43 | HOSPPROG ---
Hospitalist Progress Note Assessment/Plan: 28 yo F with breast cancer currently undergoing chemotherapy presenting with neutropenic fever 1. neutropenic fever: -was on vanco, changed to merrem by ID -bd cxs neg to date -wound cx with MSSA -Care plan reviewed with Rod Napier and Margarito 2. sepsis:fever and low wbc, as above source 3. breast cancer: with hx of bilateral mastectomy s/p reconstruction - stage IA (T1c) breast cancer, ER+/HER2 neg. C4D11 DD AC with Neulasta -BRCA carrier 4. anemia: related to chemo -watch closely -consider transfusion DISPO- > 2 mdts bc of IV abx, neutropenia in active chemotherapy pt PCP- Dr Juventino Lee [facility] FULL CODE DVT prophy- SCDs Subjective: Tired, has a GUIDO. Still with sore throat but improved. Mild N, no V. Objective: Vital Signs Temp Pulse Resp BP Pulse Ox 98.4 F 89 16 121/75 H 95 06/18/18 11:33 06/18/18 11:33 06/18/18 11:33 06/18/18 11:33 06/18/18 11:33 Microbiology 06/16/18 12:00 Gram Stain - Final Breast - Swab Wound Culture - Final Staphylococcus Aureus Laboratory Results 06/18/18 08:10 06/18/18 08:10 06/17/18 06/18/18 06/19/18 11:59 11:59 11:59 Intake Total 2295 2761 Output Total 3126 1000 Balance -831 1761 - Time Spent With Patient Time Spent with Patient: greater than 35 minutes Time Spent with Patient: Greater than 35 minutes spent on this patients care, greater than 50% of time spent counseling, educating, and coordinating care regarding the above mentioned plan. - Physical Exam Constitutional: no apparent distress Eyes: anicteric sclera Ears, Nose, Mouth, Throat: moist mucous membranes, hearing normal Cardiovascular: regular rate and rhythym, No systolic murmur Respiratory: no respiratory distress, no rales or rhonchi, clear to auscultation Gastrointestinal: normoactive bowel sounds, no palpable masses, tenderness ( mild throughout), No guarding, No rebound Skin: warm Psychiatric: interacting appropriately, not anxious, not encephalopathic, thought process linear ICD10 Worksheet Patient Problems: Problems Problem Status Onset Neutropenic fever Acute
[2018-06-18] MEDS: NS 1,000 ML IV SCH ×2 (14:07→23:07)
--- NOTE | 2018-06-18 16:12 | SOAPPROG ---
SOAP Progress Note Assessment/Plan: A/P: * Neutropenic fever: ?skin source (right breast). May see more manifestations as WBC recovers. ANC is improving. - recd Neulasta - cont broad spectrum abx * Right breast infection: ?superficial, will f/u with Dr. Rebolledo, consider imaging in next couple days after further WBC recovery (fluid collection may have * Anemia: most likely chemo, no clinical bleeding. May need xfus tomorrow. * St. IA (T1c) breast cancer, ER+/HER2 neg. C4D11 DD AC with Neulasta. * Nausea: improved overall, antiemetics prn. * BRCA carrier. 06/18/18 16:13 Subjective: S: feeling better overall, less nausea. O: VS reviewed. Tm 39.5 Gen: pale, fatigued, NAD, appears brighter. Lungs: breathing comfortably. Abd: nontender. Skin: left port without erythema/tenderness, right lateral mastectomy incision with unchanged area of induration/erythema. Laboratory Tests 06/18/18 06/18/18 08:10 08:10 WBC 0.98 L* Hgb 7.0 L Plt Count 118 L Absolute Seg Neuts 0.28 L Absolute Band Neuts 0.10 Sodium 138 Potassium 3.4 Chloride 105 Carbon Dioxide 25 BUN 3 L Creatinine 0.4 L Glucose 102 H Total Bilirubin < 0.1 L AST 16 ALT 34 Alkaline Phosphatase 60 Objective: Vital Signs Temp Pulse Resp BP Pulse Ox 36.9 C 89 16 121/75 H 95 06/18/18 11:33 06/18/18 11:33 06/18/18 11:33 06/18/18 11:33 06/18/18 11:33 Microbiology 06/16/18 12:00 Gram Stain - Final Breast - Swab Wound Culture - Final Staphylococcus Aureus Laboratory Results 06/18/18 08:10 06/18/18 08:10 06/17/18 06/18/18 06/19/18 05:59 05:59 05:59 Intake Total 2785 0410 Output Total 8115 1000 Balance -831 1761 ICD10 Worksheet Patient Problems: Problems Problem Status Onset Neutropenic fever Acute
--- NOTE | 2018-06-18 17:03 | ASMTCMCOM ---
CM Note CM Note Notes: Spoke with patient again regarding [facility] services. 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 CM explained about [facility] amarilys and still pt felt she was cared for well at home. Pt to discharge independently when afebrile for a significant amount of time. No CM needs noted at this time. D/C Plan: Home independently Date Signed: 06/18/2018 04:35 PM Electronically Signed By:Lavinia Campos
[2018-06-18] MEDS: PROMETHAZINE HCL 25 MG/ML INJ IVP PRN (18:35)
[2018-06-18] MEDS: DOXEPIN HCL 10 MG CAP PO SCH (21:49)
[2018-06-19] MEDS: CEPACOL LOZENGE PO PRN ×2 (01:04→21:09)
[2018-06-19] MEDS: HYDROCODONE/APAP 5/325 TAB PO PRN (02:50)
[2018-06-19] MEDS: ACETAMINOPHEN 500 MG TAB PO SCH ×3 (05:23→21:10)
[2018-06-19] MEDS: MEROPENEM 1 GM in NS 100 ML IV SCH ×3 (05:23→21:10)
[2018-06-19] MEDS: NYSTATIN SUSP 500000 UNIT/5 ML UD LIQ PO SCH ×2 (05:23→13:30)
[2018-06-19] MEDS: DOCUSATE SODIUM 100 MG CAP PO SCH ×2 (08:16→21:10)
[2018-06-19] MEDS: PANTOPRAZOLE SODIUM 40 MG VIAL IVP SCH (08:16)
[2018-06-19] MEDS: SENNOSIDES 1 TAB PO SCH ×2 (08:16→21:09)
--- NOTE | 2018-06-19 08:56 | SOAPPROG ---
SOAP Progress Note Assessment/Plan: Assessment: This is a very pleasant 28-year-old female with history of early stage breast cancer currently receiving adjuvant chemotherapy who was admitted for neutropenic fever. 1. Neutropenic fever: She is status post 4 cycles of dose dense AC. Blood cultures were negative. She had a respiratory plan although was negative. There was a question whether she had underlying cellulitis from her mastectomy incision. This looks well-healed today. She did have a swab of this that demonstrated Staph aureus which is not surprising. Will follow up on her blood counts today. She currently is receiving meropenem. I would consider descalating her antibiotics when her neutropenia resolved. 2. Right breast cellulitis: This appears well healed. I do not think she has an active infection currently. 3. Anemia: Secondary to chemotherapy. Will follow up on her blood counts today. 4. Chemotherapy-induced nausea: She is tolerating minimal food by mouth. I suspect this will improve over the coming days. All questions were answered. She voiced understanding the plan. 06/19/18 08:53 Subjective: Still is feeling significant nausea this morning. He has not been able to keep down any food. Has had difficulties with lab draws. Objective: Vital Signs Temp Pulse Resp BP Pulse Ox 38.3 C 90 18 124/79 H 91 L 06/19/18 05:20 06/19/18 05:20 06/19/18 05:20 06/19/18 05:20 06/19/18 05:20 Microbiology 06/16/18 12:00 Gram Stain - Final Breast - Swab Wound Culture - Final Staphylococcus Aureus Laboratory Results 06/18/18 08:10 06/18/18 08:10 06/18/18 06/19/18 06/20/18 05:59 05:59 05:59 Intake Total 2761 3101 Output Total 1000 1999 Balance 1761 1101 General: Pleasant conversant, no acute distress HEENT: Normocephalic alopecia noted extraocular movements are intact oropharynx is clear Cardiovascular: Regular rate and rhythm no murmurs gallops or rubs Pulmonary: Clear to auscultation bilaterally Abdomen: Soft nontender nondistended bowel sounds are present Extremities: No cyanosis clubbing or edema Breasts: Examined with nurse hvac sales engineer. Right-sided incision well-healed no evidence of active infection. ICD10 Worksheet Patient Problems: Problems Problem Status Onset Neutropenic fever Acute
[2018-06-19 10:25] LABS: PLATELET COUNT 201 10^3/uL (150-400)
--- NOTE | 2018-06-19 12:49 | PCMIDPN ---
Assessment/Plan: #Neutropenic fever, febrile yesterday PM to 39.5 ANC 600+. R breast incision laterally much less inflammatory today. Persistent fever, maybe less frequent. Severe L throat pain, no diarrhea, no rash --continue meropenem, doublt --CT neck w contrast due to throat, neck --ok to hold off on repeat blood cx, doubt bacteremia #Stage IA (T1c) breast cancer, ER+/HER2 neg s/p B mastectomy and reconstruction #Anemia and thrombocytopenia: stable, likely related to chemo Medications Meropenem 1 g IV Q 8, # 3 micro 06/16 breast cx: GPC on gram stain; cx MSSA 06/15 blood cx (2) NGTD 06/15 resp PCR neg 06/19/18 13:04 Subjective: L throat pain still persists Objective: Vital Signs Temp Pulse Resp BP Pulse Ox 39.1 C H 96 16 135/88 H 95 06/19/18 12:26 06/19/18 11:21 06/19/18 11:21 06/19/18 11:21 06/19/18 11:21 Microbiology 06/16/18 12:00 Gram Stain - Final Breast - Swab Wound Culture - Final Staphylococcus Aureus Laboratory Results 06/19/18 09:00 06/19/18 09:00 06/18/18 06/19/18 06/20/18 05:59 05:59 05:59 Intake Total 2761 3101 Output Total 1000 2000 Balance 1761 1101 General Appearance: alert, no apparent distress EENT: mild erythema posterior pharynx - difficult exam, no ulcers or thrush noted Respiratory: lungs clear, No accessory muscle use Neck: supple; tenderness L neck Cardiac/Chest: regular rate, rhythm, R breast lateral <1 cm area pinkness, no drainage today, no surrounding cellulitis Extremities: No pedal edema Abdomen: normal bowel sounds, non-tender, soft Pelvic Exam: No astudillo Skin: pallor, No rash Neuro/Psych: alert, normal mood/affect, oriented x 3 Lambert: No drainage, No erythema Time Spent with Patient: Greater than 35 minutes spent on this patients care, greater than 50% of time spent counseling, educating, and coordinating care regarding the above mentioned plan. ICD10 Worksheet Patient Problems: Problems Problem Status Onset Neutropenic fever Acute
[2018-06-19] MEDS: IBUPROFEN 200 MG TAB PO PRN ×3 (13:29→22:33)
[2018-06-19] MEDS ORDERED: IOPAMIDOL (ISOVUE-300) 100 ML BTL ONE (14:38)
[2018-06-19] MEDS: DOXEPIN HCL 10 MG CAP PO SCH (21:09)
[2018-06-19] MEDS: oxyCODONE IR 5 MG TAB PO PRN (21:24)
[2018-06-20] MEDS: LORazepam 2 MG/ML INJ IVP PRN ×4 (00:33→21:23)
[2018-06-20] MEDS: oxyCODONE IR 5 MG TAB PO PRN (04:55)
[2018-06-20] MEDS: ACETAMINOPHEN 500 MG TAB PO SCH ×4 (04:56→21:21)
[2018-06-20] MEDS: MEROPENEM 1 GM in NS 100 ML IV SCH ×3 (05:00→21:21)
[2018-06-20 05:37] LABS: PLATELET COUNT 282 10^3/uL (150-400)
[2018-06-20] MEDS ORDERED: DEXAMETHASONE 4 MG/ML VIAL IVP ONE (08:09)
--- NOTE | 2018-06-20 08:44 | SOAPPROG ---
SOAP Progress Note Assessment/Plan: 28 yo F with breast cancer currently undergoing chemotherapy presenting with neutropenic fever 1. neutropenic fever: -was on vanco, changed to merrem by ID -bd cxs neg to date -wound cx with MSSA -WBC/ANC counts improving -Care plan reviewed with Rod Kitchen and Margarito 2. sepsis:fever and low wbc, as above source -checking CT neck also 3. breast cancer: with hx of bilateral mastectomy s/p reconstruction - stage IA (T1c) breast cancer, ER+/HER2 neg. C4D11 DD AC with Neulasta -BRCA carrier 4. anemia: related to chemo -watch closely -consider transfusion 5. Thrush/throat pain -was on nystatin -CT scan pending -scheduled tylenol -dc norco/change to oxy to avoid excess tylenol DISPO- > 2 mdts bc of IV abx, neutropenia and ongoing fevers in active chemotherapy pt PCP- Dr Juventino Lee [facility] FULL CODE DVT prophy- SCDs Subjective: Feels a but better today, trying to eat more. + pain in throat (Dr Pimentel ordered a CT neck). Objective: Vital Signs Temp Pulse Resp BP Pulse Ox 98.7 F 95 16 123/85 H 95 06/20/18 04:00 06/20/18 04:00 06/20/18 04:00 06/20/18 04:00 06/20/18 04:00 Laboratory Results 06/20/18 04:59 06/20/18 04:59 06/18/18 06/19/18 06/20/18 11:59 11:59 11:59 Intake Total 2761 3101 927 Output Total 1000 1999 1999 Balance 1761 1101 -1073 Physical Exam - Physical Exam General Appearance: alert, no apparent distress EENT: PERRL/EOMI Respiratory: lungs clear, normal breath sounds, respiratory distress Cardiac/Chest: regular rate, rhythm, No edema Abdomen: normal bowel sounds, non-tender, soft, No organomegaly, No distended, No guarding, No rebound Neuro/Psych: alert, normal mood/affect ICD10 Worksheet Patient Problems: Problems Problem Status Onset Neutropenic fever Acute
[2018-06-20] MEDS ORDERED: IBUPROFEN 600 MG TAB PO PRN (08:47)
[2018-06-20] MEDS ORDERED: MAGNESIUM HYDROXIDE 30 ML UDCUP PO PRN (08:50)
[2018-06-20] MEDS ORDERED: SENNOSIDES/DOCUSATE SODIUM TAB PO PRN (08:50)
[2018-06-20] MEDS ORDERED: POLYETHYLENE GLYCOL 3350 17 GM PKT PO PRN (08:50)
[2018-06-20] MEDS ORDERED: LACTULOSE 20 GM/30 ML UDCUP PO PRN (08:50)
[2018-06-20] MEDS ORDERED: BISACODYL 10 MG SUPP PR PRN (08:50)
--- NOTE | 2018-06-20 08:52 | HOSPPROG ---
Hospitalist Progress Note Assessment/Plan: 28 yo F with breast cancer currently undergoing chemotherapy presenting with neutropenic fever 1. neutropenic fevers: -was on vanco, changed to merrem by ID -bd cxs neg to date, repeat set done today after 102 fever -breast wound cx with MSSA, CT neck concerning for phlegmon -WBC/ANC counts improving daily -Care plan reviewed with Dr Kitchen -ENT eval appreciated 2. sepsis:fever and low wbc -CT neck with L phlegmon, not obvious abscess -ENT to re-eval tomorrow -steroids given, improved sxs -micafungin added by Dr Kitchen 3. breast cancer: with hx of bilateral mastectomy s/p reconstruction -stage IA (T1c) breast cancer, ER+/HER2 neg. C4D11 DD AC with Neulasta -BRCA carrier 4. pancytopenia related to chemo -improving 5. Thrush/throat pain -was on nystatin, micafungin started today -CT with phlegmon -ENT consult appreciated DISPO- > 2 mdts bc of IV abx, neutropenia and ongoing fevers in active chemotherapy pt, evaluation of throat phlegmon PCP- Dr Juventino Lee [facility] FULL CODE DVT prophy- SCDs Subjective: [place] better this PM, less throat pain, cepacol and steroids given/ helped. Less nausea, eating a bit more. Very eager to go home soon. Denies CP/ SOB/abd pain. Objective: Vital Signs Temp Pulse Resp BP Pulse Ox 98.7 F 95 16 123/85 H 95 06/20/18 04:00 06/20/18 04:00 06/20/18 04:00 06/20/18 04:00 06/20/18 04:00 Laboratory Results 06/20/18 04:59 06/20/18 04:59 06/18/18 06/19/18 06/20/18 11:59 11:59 11:59 Intake Total 2761 3101 927 Output Total 1000 1999 1999 Balance 1761 1101 -1073 - Physical Exam Constitutional: no apparent distress Eyes: PERRL, anicteric sclera Ears, Nose, Mouth, Throat: moist mucous membranes, hearing normal, other ( erythema, no exudate in post oropharynx) Cardiovascular: regular rate and rhythym, no murmur, rub, or gallop Respiratory: no respiratory distress, no rales or rhonchi, clear to auscultation Gastrointestinal: normoactive bowel sounds, soft, non-tender abdomen Skin: warm Psychiatric: interacting appropriately, not anxious, not encephalopathic, thought process linear ICD10 Worksheet Patient Problems: Problems Problem Status Onset Neutropenic fever Acute
--- NOTE | 2018-06-20 09:01 | SOAPPROG ---
SOAP Progress Note Assessment/Plan: Assessment: This is a very pleasant 28-year-old female with history of early stage breast cancer currently receiving adjuvant chemotherapy who was admitted for neutropenic fever. 1. Neutropenic fever: She is status post 4 cycles of dose dense AC. Blood cultures were negative. She had a respiratory panel which was negative. There was a question whether she had underlying cellulitis from her mastectomy incision which was swabbed and demonstrated MSSA. She continues to remain febrile. I reviewed the CT scans with her of the neck today the demonstrates no evidence of abscess. She saw ENT this morning and started her on dexamethasone. Her neutropenia is slowly resolving I suspect that some of her symptoms will worsen before they get better. She is noted to be on meropenem. Appreciate Infectious Disease input with regards to repeated blood cultures adding antifungals. 2. Right breast cellulitis: This appears well healed. I do not think she has an active infection currently. 3. Anemia: Secondary to chemotherapy. 4. Chemotherapy-induced nausea: Nausea has improved but has decreased p.o. Intake due to pain. All questions were answered. She voiced understanding the plan. 06/20/18 09:41 Subjective: Her throat feels substantially worse today compared to yesterday morning. She does have pain when at baseline worse with swallowing. Remains febrile through the night. Overall does not feel well today. Does feel a bit home sick. Objective: Vital Signs Temp Pulse Resp BP Pulse Ox 37.1 C 95 16 123/85 H 95 06/20/18 04:00 06/20/18 04:00 06/20/18 04:00 06/20/18 04:00 06/20/18 04:00 Laboratory Results 06/20/18 04:59 06/20/18 04:59 06/19/18 06/20/18 06/21/18 05:59 05:59 05:59 Intake Total 3101 927 Output Total 1999 1999 Balance 1101 -1073 General: Pleasant, conversant in no acute distress HEENT: Unable to assess posterior oropharynx, otherwise oropharynx is clear, extraocular movements are intact, pupils equal round reactive to light Pulmonary: Clear to auscultation bilaterally Cardiovascular: Regular rate and rhythm no murmurs gallops or rubs Abdomen: Soft nontender nondistended bowel sounds are present Extremities: No cyanosis clubbing or edema Skin: No skin lesions Psych: Appropriate affect ICD10 Worksheet Patient Problems: Problems Problem Status Onset Neutropenic fever Acute
--- NOTE | 2018-06-20 09:10 | PDCONSULT ---
Director Biostatistics Note: ENT CONSULTATION: DATE OF CONSULTATION: 06/20/18 REFERRING PHYSICIAN: Ashleigh Pimentel MD REASON FOR CONSULTATION: Sore throat HISTORY OF PRESENT ILLNESS: This is a 28 year old female with a history of breast cancer s/p bilateral mastectomy early March now undergoing adjuvant chemotherapy. She presented to her oncologist's office 06/13/18 with sore throat , general malaise and temperature of 99.2 F. Her 2 year old son had been home with URI. She was sent home. That evening fever reached 104/0. She was referred to the ER and was admitted for neutropenic fever. She was initially started on vancomycin and cefepime. Since admission blood cultures have been negative, chest x-ray without filtrate. She reported progressive scratchy throat and yesterday CT scan of the neck showed peritonsillar phlegmon and ENT was asked for consultation. Today she reports sore throat is worse. Left sided. Feels like something is there. Odonyphagia. Denies dyspnea, dysphgia, chest pain. PAST MEDICAL HISTORY: Breast cancer. CURRENT MEDICATIONS: Meropenem, See chart for full list. ALLERGIES: NKDA FAMILY HISTORY: Mother with breast and ovarian cancer. REVIEW OF SYSTEMS: Outside HPI, 10 system review is non-contributory. PHYSICAL EXAM: AFVSS. GENERAL: Patient appears ill but non-toxic. HEAD: Head normocephalic, atraumatic. EENT: EOMs intact. Moist mucosa. Oropharynx is notable for left peritonsillar fullness, erythema. Uvula is edematous but without deviation. She is tender on palpation, however no fluctuance noted. Tonsils 2+ without exudate. Prominent gag reflex. Neck is supple. She is tolerating secretions. CHEST: Patient is breathing well. No stridor. NEUROLOGIC: Cranial nerves intact. SKIN: No rashes. LABORATORY/IMAGING: WBC 2.64, HCT 24.4, PLTS 282. CT scan of neck without contrast performed 06/19/18 showed complex inflammatory changes in parapharyngeal/peritonsillar cervical soft tissue consistent with phlegmon without definitive abscess. No impingement on airway. IMPRESSION: 28 year old female with breast cancer undergoing chemotherapy, recovering from neutropenic fever with left-sided peritonsillar cellulitis/ phlegmon. I was not able to appreciate fluctuance on palpation and CT images consistent with phlegmon. I have recommended 12 mg dexamethasone, continue with meropenem per ID. Discussed possibility for development of abscess. We will plan to re-evaluate tomorrow morning. Plan was reviewed with Dr. Pimentel, Dr. Kitchen, and Dr. Gu. SUPERVISING PHYSICIAN: Dr. Gu
[2018-06-20] MEDS: PANTOPRAZOLE SODIUM 40 MG TAB PO SCH (09:17)
[2018-06-20] MEDS: SENNOSIDES 1 TAB PO SCH ×2 (09:17→21:21)
[2018-06-20] MEDS: DOCUSATE SODIUM 100 MG CAP PO SCH ×2 (09:17→21:22)
--- NOTE | 2018-06-20 09:42 | PCMIDPN ---
Assessment/Plan: #Neutropenic fever, Persistent fever but ANC 1400. Identified COUNSELING DIRECTOR/phlegmon yesterday and suspect this is cause of fever. --continue meropenem - likely covers typical etiologies of paratonsillar abscess --with ongoing fever, repeat blood cultures. Suspect ongoing fever reflects impending need for need for I&D of peritonsillar abscess. If ENT I&D's they will take cultures. --reasonable to add antifungal coverage today due to ongoing fever, there is a remote chance of precious paratonsillar abscess. Known MSSA make simultaneous MRSA unlikely there fore would not add MRSA coverage --appreciate ENT involvement --continue to monitor R lateral breast - exam stable today. Needs plastics follow up at [facility] #Stage IA (T1c) breast cancer, ER+/HER2 neg s/p B mastectomy and reconstruction #Anemia and thrombocytopenia: stable, likely related to chemo Medications Meropenem 1 g IV Q 8, # 4 micro 06/16 breast cx: GPC on gram stain; cx MSSA 06/15 blood cx (2) NGTD 06/15 resp PCR neg Care coordinated with ENT, oncology Subjective: increased L throat pain today Objective: Vital Signs Temp Pulse Resp BP Pulse Ox 39.4 C H 109 H 16 128/78 H 94 06/20/18 08:55 06/20/18 08:55 06/20/18 08:55 06/20/18 08:55 06/20/18 08:55 Laboratory Results 06/20/18 04:59 06/20/18 04:59 06/19/18 06/20/18 06/21/18 05:59 05:59 05:59 Intake Total 3101 927 Output Total 1999 1999 Balance 1101 -1073 General Appearance: alert, no apparent distress EENT: mild erythema posterior pharynx - difficult exam, no ulcers or thrush noted Respiratory: lungs clear, No accessory muscle use Neck: supple; tenderness L neck, no swelling Cardiac/Chest: regular rate, rhythm, R breast lateral <1 cm area pinkness, no drainage today, no surrounding cellulitis Extremities: No pedal edema Abdomen: normal bowel sounds, non-tender, soft Pelvic Exam: No astudillo Skin: pallor, No rash Neuro/Psych: alert, normal mood/affect, oriented x 3 L chest wall Lambert: No drainage, No erythema Time Spent with Patient: Greater than 35 minutes spent on this patients care, greater than 50% of time spent counseling, educating, and coordinating care regarding the above mentioned plan. Education of patient and her at bedside ICD10 Worksheet Patient Problems: Problems Problem Status Onset Neutropenic fever Acute
[2018-06-20] MEDS: MICAFUNGIN NA 100 MG in NS 100 ML IV SCH (10:49)
[2018-06-20] MEDS: DOXEPIN HCL 10 MG CAP PO SCH (21:22)
[2018-06-21] MEDS: MEROPENEM 1 GM in NS 100 ML IV SCH ×2 (05:34→14:03)
[2018-06-21] MEDS: ACETAMINOPHEN 500 MG TAB PO SCH ×2 (05:45→14:01)
[2018-06-21] MEDS: LORazepam 2 MG/ML INJ IVP PRN (05:55)
[2018-06-21 07:00] LABS: PLATELET COUNT 375 10^3/uL (150-400)
[2018-06-21] MEDS ORDERED: DEXAMETHASONE 4 MG/ML VIAL IVP ONE (08:26)
--- NOTE | 2018-06-21 08:32 | SOAPPROG ---
SOAP Progress Note Assessment/Plan: Assessment/Plan: 28 year old female recovering from neutropenic fever with left peritonsillar cellulitis. She is much improved today. Received 12 mg dexamethasone yesterday. She notes left throat pain is essentially resolved. Denies dyspnea, dysphagia. She looks much better on exam today. Left peritonsillar edema and erythema essentially resolved. Tonsils 1+ without exudate. Uvular swelling resolved. Breathing well. No stridor. I have given 4 mg more of dexamethasone. She will continue antibiotics per ID. Discharge per ID/oncology. Outpatient follow up only as needed. Plan reviewed with Dr. Gu. 06/21/18 08:27 Objective: Vital Signs Temp Pulse Resp BP Pulse Ox 36.8 C 65 16 112/69 93 06/21/18 04:00 06/21/18 04:00 06/21/18 04:00 06/21/18 04:00 06/21/18 04:00 Microbiology 06/15/18 12:30 Blood Culture - Final Blood 06/15/18 10:00 Blood Culture - Final Blood Laboratory Results 06/21/18 06:00 06/21/18 06:00 06/20/18 06/21/18 06/22/18 05:59 05:59 05:59 Intake Total 920 2370 Output Total 0354 Pzrbuqr -8577 2370 - Time Spent With Patient Time Spent With Patient: 10 minutes ICD10 Worksheet Patient Problems: Problems Problem Status Onset Neutropenic fever Acute
[2018-06-21] MEDS: PANTOPRAZOLE SODIUM 40 MG TAB PO SCH (08:41)
[2018-06-21] MEDS: ONDANSETRON 4 MG/2 ML VIAL IVP PRN (08:44)
[2018-06-21] MEDS: MICAFUNGIN NA 100 MG in NS 100 ML IV SCH (08:49)
[2018-06-21] MEDS: SENNOSIDES 1 TAB PO SCH (08:49)
[2018-06-21] MEDS: DOCUSATE SODIUM 100 MG CAP PO SCH (08:49)
[2018-06-21 12:36] VITALS: BP 112/77
--- NOTE | 2018-06-21 15:00 | PCMIDPN ---
Assessment/Plan: Assessment/Plan: * Neutropenic fever: Afebrile over last 24 hr with recovery of ANC. Marked clinical improvement post Decadron for peritonsillar cellulitis/phlegmon. Given marked clinical improvement and recovery of ANC, will transition to Augmentin 875 mg orally twice daily x7 additional days which will cover both gil tonsillar infection as well as MSSA isolated from lateral right breast incision. She will need ongoing follow-up with plastic surgery for this over time as if worsens or fails to resolve would have concerns about potential implant involvement. Advised patient to notify me if she develops recurrent fever, chills, throat symptoms, or worsening breath symptoms. Side effects of Augmentin including potential for allergic reactions and diarrhea discussed with patient. Will arrange for follow-up my office later this week to ensure continued improvement. 06/21/18 14:57 Subjective: Patient feels significantly improved with no residual throat pain. No pain along right breast. Anxious to go home so she can be with her family. Objective: Vital Signs Temp Pulse Resp BP Pulse Ox 37.0 C 85 16 112/77 92 06/21/18 12:00 06/21/18 12:00 06/21/18 12:00 06/21/18 12:00 06/21/18 12:00 Microbiology 06/15/18 12:30 Blood Culture - Final Blood 06/15/18 10:00 Blood Culture - Final Blood Laboratory Results 06/21/18 06:00 06/21/18 06:00 06/20/18 06/21/18 06/22/18 05:59 05:59 05:59 Intake Total 927 2370 Output Total 1999 Balance -1073 2370 Meropenem # 5 Blood cultures 06/15/2018 no growth Blood cultures 06/20/2018 pending - Physical Exam General Appearance: alert, no apparent distress, non-toxic EENT: other (Unable to visualize posterior pharynx; no stridor or difficulty with handling of secretions), No scleral icterus, No thrush Respiratory: lungs clear, No respiratory distress Neck: non-tender, supple Cardiac/Chest: regular rate, rhythm, other (Port nontender without erythema) Extremities: No inflammation Abdomen: non-tender, No distended Skin: other (Mild residual erythema over lateral portion of right breast incision without palpable fluctuance or drainage; no surrounding cellulitis) ICD10 Worksheet Patient Problems: Problems Problem Status Onset Neutropenic fever Acute
--- NOTE | 2018-06-21 15:28 | ASDISCHSUM ---
Discharge Information Plan Status:Home with No Needs Medically Cleared to Leave:06/20/2018 Discharge Date:06/20/2018 CM D/C Disposition:Home, Routine, Self-Care ADT D/C Disposition:Home, Routine, Self-Care Projected Discharge Date:06/20/2018 Transportation at D/C:Family Discharge Delay Reason: Follow-Up Date:06/20/2018 Discharge Slot: Final Diagnosis:post chemo neutropenic fever Placement Information Patient Contact Information Contact Name:AMARILIS Relationship: Address:[address] Work Phone: City:[facility] Phone: State/Zip Code:[place] [address] Email: Financial Information Financial Class:BCOP Primary Plan Desc: OUT OF STATE [facility] Primary Plan Number:[id number] Secondary Plan Desc: Secondary Plan Number: Assessment Information LACE LACE Length of stay for Answers: 7-13 days current admission Acuity / Level of Answers: Yes Care: Did the patient have an inpatient admission? Comorbidities - select Answers: Any tumor (including all that apply lymphoma or leukemia) # of Emergency department Answers: 1-2 visits in the last 6 months Score: 11 Date Signed: 06/21/2018 03:27 PM Electronically Signed By:HALLE Leblanc [facility] CM Progress Note CM Note CM Note Notes: Chart reviewed. 28 year old female with dx of breast ca s/p mastectomy and presents with neutropenic fever after 4rth round of chemotherapy. No identified needs at this time. CM to follow for needs. Plan: Likely dc home independently when medically cleared. Date Signed: 06/15/2018 02:25 PM Electronically Signed By:Imelda Wood RN [facility] CM Progress Note CM Note CM Note Notes: Pt has small child at home. Given brochure for [facility]. Pt feels very supported by community and may not need further support, however stated she would read the brochure and we could do application in the morning if she is interested at that time. CM to follow. D/C plan: home with family support and possibly [facility] Date Signed: 06/17/2018 04:32 PM Electronically Signed By:Lavinia Campos [facility] CM Progress Note CM Note CM Note Notes: Spoke with patient again regarding [facility] services. 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 CM explained about [facility] amarilys and still pt felt she was cared for well at home. Pt to discharge independently when afebrile for a significant amount of time. No CM needs noted at this time. D/C Plan: Home independently Date Signed: 06/18/2018 04:35 PM Electronically Signed By:Lavinia Campos Case Management Discharge Plan Note Case Management Discharge Discharge Order Complete? Answers: Yes Patient to Obtain Answers: Independently Medications Transportation Arranged Answers: Family/Friends Discharge Comments Notes: Pt is transitioning to po ABX and discharging home today. She has no CM needs. Date Signed: 06/21/2018 03:26 PM Electronically Signed By:HALLE Leblanc Intervention Information
--- NOTE | 2018-06-21 18:36 | GDS ---
DISCHARGE DIAGNOSES: 1. Neutropenic fever. 2. Peritonsillar cellulitis/phlegmon. 3. MSSA right breast cellulitis. 4. Anemia. 5. Chemotherapy-induced nausea. 6. Stage I breast cancer with BRCA mutation. 7. Sepsis. HISTORY OF PRESENT ILLNESS: A 28-year-old female with stage I breast cancer, with BRCA mutation, presented with a fever of 104 at home. She had completed her 4th round of chemotherapy with Adriamycin/Cytoxan 6 days prior and felt worse this time than prior rounds of chemo. She had shaking chills and headache. HOSPITAL COURSE BY PROBLEM: 1. Neutropenic fever. Possible sources included MSSA right breast cellulitis vversus peritonsillar cellulitis/phlegmon. Evaluated by Infectious Disease and ID. No surgical intervention was warranted. Discharged on Augmentin for 7 days. Follow up with Dr. Iraheta on 06/24. 2. Sepsis resolved. 3. Stage I breast cancer. Follow up with Oncology. 4. Chemo-related pancytopenia. Labs are stable today. DISPOSITION: Patient was stable for discharge home. NEW MEDICATIONS: Augmentin 875 b.i.d. x7 days. FOLLOWUP: 1. Dr. Iraheta at 11:. 2. Oncology. 3. Plastic surgeon. PHYSICAL EXAM: VITAL SIGNS: Temperature afebrile, blood pressure 112/77, heart rate in the 80s, respirations 16, 92% on room air. GENERAL: She is thin , pale, in no acute distress. HEENT: PERRLA. Moist mucous membranes. Oropharynx clear. No stridor. CV: Regular rate and rhythm. LUNGS: Clear. ABDOMEN: Soft, nontender. : No Uribe. MUSCULOSKELETAL: 5/5 upper and lower extremity strength. Time spent on discharge: Greater than 30 minutes at bedside evaluating patient , discussing case with Dr. Crabtree and Dr. Iraheta. /[id number]
--- NOTE | 2018-06-21 21:30 | SOAPPROG ---
SOAP Progress Note Assessment/Plan: Assessment/Plan: This is a 28-year-old female with history of early stage breast cancer in setting of pathologic BRCA germline mutation currently receiving adjuvant chemotherapy who was admitted for neutropenic fever secondary to parapharyngeal tonsillar phlegmon. 1. Neutropenic fever secondary to parapharyngeal tonsillar phlegmon. She is status post 4 cycles of dose dense AC. Blood cultures were negative. She had a respiratory panel which was also negative. She had a sore throat at CT neck showed parapharyngeal tonsillar phlegmon without abscess. She was assessed by ENT and steroids and antibiotics were recommended. She has improved dramatically overnight likely with the return of neutrophils. From oncology standpoing I feel comfortable with her discharging from hospital. 2. Right breast cellulitis: This appears well healed. I do not think she has an active infection currently. 3. Anemia: Secondary to chemotherapy. 4. Chemotherapy-induced nausea: Nausea has improved but has decreased p.o. intake due to pain which has improved Virgil Crabtree Subjective: Patient reports feeling well. She has been afebrile 24 hours and is no longer neutropenic. Her sore throat is gone. She misses her son. No other symptoms. Objective: Vital Signs Temp Pulse Resp BP Pulse Ox 37.0 C 85 16 112/77 92 06/21/18 12:00 06/21/18 12:00 06/21/18 12:00 06/21/18 12:00 06/21/18 12:00 Microbiology 06/15/18 12:30 Blood Culture - Final Blood 06/15/18 10:00 Blood Culture - Final Blood Laboratory Results 06/21/18 06:00 06/21/18 06:00 06/20/18 06/21/18 06/22/18 05:59 05:59 05:59 Intake Total 927 2370 Output Total 1999 Balance -9903 2370 General: Pleasant, conversant in no acute distress HEENT: oropharynx is clear, extraocular movements are intact, pupils equal round reactive to light Pulmonary: Clear to auscultation bilaterally Cardiovascular: Regular rate and rhythm no murmurs gallops or rubs Abdomen: Soft nontender nondistended bowel sounds are present Extremities: No cyanosis clubbing or edema Skin: No skin lesions Psych: Appropriate affect ICD10 Worksheet Patient Problems: Problems Problem Status Onset Neutropenic fever Acute
== END 2018-06-21 16:45 | disposition home or self-care (01) | DRG 871 ==
LOC: OBSVTOIN 18:52 → F1N 21:18
PROVIDERS: ADMIT Internal Medicine; ATTEND Internal Medicine
DX: A41.01 Sepsis due to Methicillin susceptible Staphylococcus aureus (principal); D61.810 Antineoplastic chemotherapy induced pancytopenia; J36 Peritonsillar abscess; N61.0 Mastitis without abscess; C50.919 Malignant neoplasm of unspecified site of unspecified female breast; T45.1X5A Adverse effect of antineoplastic and immunosuppressive drugs, initial encounter; D70.9 Neutropenia, unspecified; R11.0 Nausea; Z90.13 Acquired absence of bilateral breasts and nipples; Z23 Encounter for immunization
CPT/HCPCS: G0008; J0692; J1100; J1642; J2060; J2185; J2248; J2405; J2550; J3370; Q9967

== ENCOUNTER 2018-07-28 06:52 | Emergency (ER) | payer BC ==
[2018-07-28] MEDS ORDERED: NS 1,000 ML IV ONE ×2 (07:03→09:26)
[2018-07-28] MEDS ORDERED: ONDANSETRON 4 MG/2 ML VIAL IVP ONE (07:03)
--- NOTE | 2018-07-28 07:06 | EDPHY ---
H & P Stated Complaint: vomiting and diarrhea since 2299 IV chemo on 07/23 Time Seen by Provider: 07/28/18 07:05 HPI/ROS: CHIEF COMPLAINT: Vomiting, breast cancer HISTORY OF PRESENT ILLNESS: 28-year-old female with breast cancer presents with vomiting and diarrhea. Last chemotherapy was 07/23/2018. She has experienced acid reflux since the last chemotherapy. Onset of vomiting last evening, unable tolerate oral fluids or food. Took Compazine and 2 doses of Zofran ODT without relief. Associated with 2 episodes of watery diarrhea. Intermittent abdominal cramping, none currently. Temperature was 99 degrees. REVIEW OF SYSTEMS: complete 10 point ROS reviewed and is negative except for the noted elements in the HPI - Personal History LMP (Females 10-55): Unknown Current Tetanus/Diphtheria Vaccine: Yes Current Tetanus Diphtheria and Acellular Pertussis (TDAP): Yes - Medical/Surgical History Hx Asthma: No Hx Chronic Respiratory Disease: No Hx Diabetes: No Hx Cardiac Disease: No Hx Renal Disease: No Hx Cirrhosis: No Hx Alcoholism: No Hx HIV/AIDS: No Hx Splenectomy or Spleen Trauma: No Other PMH: breast cancer - Social History Smoking Status: Never smoked Alcohol Use: None Drug Use: None - Physical Exam Exam: General Appearance: Alert, pleasant, nontoxic Eyes: Pupils equal and round, conjunctival pallor ENT, Mouth: Mucous membranes slightly dry Neck: Normal inspection Respiratory: Lungs are clear to auscultation Cardiovascular: Regular rate and rhythm Gastrointestinal: Abdomen is soft and nontender Neurological: A&O, nonfocal exam Skin: Warm and dry, slightly pale Extremities: Normal inspection Psychiatric: Mood and affect normal Constitutional: Initial Vital Signs Temperature (C) 37.2 C 07/28/18 06:53 Heart Rate 126 H 07/28/18 06:53 Respiratory Rate 18 07/28/18 06:53 Blood Pressure 109/67 07/28/18 06:53 O2 Sat (%) 98 07/28/18 06:53 O2 Delivery Mode Room Air Allergies/Adverse Reactions: No Known Allergies Allergy (Verified 07/28/18 06:56) Home Medications: Medication Instructions Recorded Cyclophosphamide [Cytoxan] 0 mg IV AD 06/14/18 Doxepin HCl [SINEquan 10 MG (*)] 10 mg PO HS 06/14/18 Doxorubicin HCl [Adriamycin] 0 mg IV AD 06/14/18 LORazepam [Ativan (*)] 1 mg PO DAILY PRN 06/14/18 Ondansetron [Ondansetron Odt] 4 mg PO Q6 PRN 06/14/18 Prochlorperazine Maleate 10 mg PO Q6 PRN 06/14/18 [Compazine 10mg (*)] Promethazine HCl [Phenergan Rectal] 25 mg TX Q6 PRN #10 suppr 07/28/18 Medical Decision Making ED Course/Re-evaluation: This patient presents with vomiting and diarrhea, likely infectious in etiology. IV normal saline 1 L, Zofran 4 mg and Phenergan 6.25 mg IV given. 9:20 a.m.-feels better after IV fluids and medications. Tolerating oral fluids well. Has not urinated yet so will give a 2nd L of IV fluids and continue to observe. A 2nd L of normal saline was given and the patient continues to tolerate oral fluids well. Abdomen remained soft and nontender. No BM while in the ED. Will discharge home. A prescription for Phenergan suppositories given. Differential Diagnosis: Differential diagnosis includes though it is not limited to appendicitis, cholecystitis, diverticulitis, pyelonephritis, bowel perforation, small bowel obstruction. - Data Points Laboratory Results: Laboratory Results 07/28/18 07:46 07/28/18 07:46 07/28/18 07/28/18 07:46 07:46 WBC 4.65 10^3/uL 10^3/uL (3.80-9.50) RBC 3.45 10^6/uL L 10^6/uL (4.18-5.33) Hgb 10.7 g/dL L g/dL (12.6-16.3) Hct 31.5 % L % (38.0-47.0) MCV 91.3 fL fL (81.5-99.8) MCH 31.0 pg pg (27.9-34.1) MCHC 34.0 g/dL g/dL (32.4-36.7) RDW 14.6 % % (11.5-15.2) Plt Count 250 10^3/uL 10^3/uL (150-400) MPV 10.0 fL fL (8.7-11.7) Neut % (Auto) Not Reported Lymph % (Auto) Not Reported Yancey % (Auto) Not Reported Eos % (Auto) Not Reported Baso % (Auto) Not Reported Nucleat RBC Rel Count Not Reported Absolute Neuts (auto) Not Reported Absolute Lymphs (auto) Not Reported Absolute Monos (auto) Not Reported Absolute Eos (auto) Not Reported Absolute Basos (auto) Not Reported Absolute Nucleated RBC Not Reported Immature Gran % Not Reported Seg Neutrophils % 96.0 % % Band Neutrophils % 1.0 % % Lymphocytes % 2.0 % % Monocytes % 0.0 % % Eosinophils % 1.0 % % Basophils % 0.0 % % Metamyelocytes % 0.0 % % Myelocytes % 0.0 % % Promyelocytes % 0.0 % % Blast Cells % 0.0 % % Immature Gran # Not Reported Absolute Seg Neuts 4.46 10^3/uL 10^3/uL (1.70-6.50) Absolute Band Neuts 0.05 10^3/uL 10^3/uL (0.00-0.70) Absolute Lymphocytes 0.09 10^3/uL L 10^3/uL (1.00-3.00) Absolute Monocytes 0.00 10^3/uL L 10^3/uL (0.30-0.80) Absolute Eosinophils 0.05 10^3/uL 10^3/uL (0.03-0.40) Absolute Basophils 0.00 10^3/uL L 10^3/uL (0.02-0.10) Absolute Metamyelocyte 0.00 10^3/mL 10^3/mL (0.00-0.00) Absolute Myelocytes 0.00 10^3/mL 10^3/mL (0.00-0.00) Absolute Promyelocytes 0.00 10^3/uL 10^3/uL (0.00-0.00) Absolute Plasma Cells 0.00 10^3/uL 10^3/uL (0.00-0.00) Nucleated RBCs 0 /100 WBC /100 WBC (0-0) Absolute Blast Cells 0.00 10^3/uL 10^3/uL (0.00-0.00) Plasma Cells % 0.0 % % Platelet Estimate ADEQUATE (ADEQ) Hypochromasia 1+ H Sodium 139 mEq/L mEq/L (135-145) Potassium 3.6 mEq/L mEq/L (3.5-5.2) Chloride 103 mEq/L mEq/L (97-110) Carbon Dioxide 25 mEq/l mEq/l (22-31) Anion Gap 11 mEq/L mEq/L (6-14) BUN 21 mg/dL mg/dL (7-23) Creatinine 0.6 mg/dL mg/dL (0.6-1.0) Estimated GFR > 60 Glucose 114 mg/dL H mg/dL (70-100) Calcium 9.7 mg/dL mg/dL (8.5-10.4) Total Bilirubin 1.1 mg/dL mg/dL (0.1-1.4) Conjugated Bilirubin 0.1 mg/dL mg/dL (0.0-0.5) Unconjugated Bilirubin 1.0 mg/dL mg/dL (0.0-1.1) AST 27 IU/L IU/L (14-46) ALT 55 IU/L H IU/L (9-52) Alkaline Phosphatase 73 IU/L IU/L (38-126) Total Protein 7.4 g/dL g/dL (6.3-8.2) Albumin 4.4 g/dL g/dL (3.5-5.0) Lipase 57 IU/L IU/L (23-300) Medications Given: Discontinued Medications Heparin Sodium (Porcine) (Heparin Lock Flush) 500 unit IVP EDNOW ONE Stop: 07/28/18 10:52 Last Admin: 07/28/18 10:52 Dose: 500 unit Sodium Chloride (Ns) 1,000 mls @ 0 mls/hr IV EDNOW ONE; Wide Open PRN Reason: Protocol Stop: 07/28/18 07:04 Last Admin: 07/28/18 07:43 Dose: 1,000 mls Sodium Chloride (Ns) 1,000 mls @ 0 mls/hr IV ONCE ONE; Wide Open PRN Reason: Protocol Stop: 07/28/18 09:27 Last Admin: 07/28/18 09:40 Dose: 1,000 mls Ondansetron HCl (Zofran) 4 mg IVP EDNOW ONE Stop: 07/28/18 07:04 Last Admin: 07/28/18 07:48 Dose: 4 mg Promethazine HCl (Phenergan) 6.25 mg IVP EDNOW ONE Stop: 07/28/18 07:44 Last Admin: 07/28/18 07:48 Dose: 6.25 mg Departure - Departure Disposition: Home, Routine, Self-Care Clinical Impression: Vomiting and diarrhea Condition: Good Instructions: Promethazine (Into the rectum), Acute Nausea and Vomiting (ED) Additional Instructions: 1. Clear liquids for 24 hours. 2. Advance diet as tolerated. I suggest the BRAT diet to start: bananas, rice, applesauce and toast. 3. Return for worsening symptoms, persistent vomiting, abdominal pain, any concerns. Referrals: Liv Lee MD [Primary Care Provider] - As per Instructions Prescriptions: Promethazine HCl [Phenergan Rectal] 25 mg TX Q6 PRN #10 suppr PRN Reason: vomiting
[2018-07-28] MEDS ORDERED: PROMETHAZINE HCL 25 MG/ML INJ IVP ONE (07:43)
[2018-07-28 08:15] LABS: PLATELET COUNT 250 10^3/uL (150-400)
[2018-07-28 09:11] VITALS: BP 113/68
== END 2018-07-28 11:00 | disposition home or self-care (01) ==
DX: R11.10 Vomiting, unspecified (principal); R19.7 Diarrhea, unspecified; E86.9 Volume depletion, unspecified; C50.919 Malignant neoplasm of unspecified site of unspecified female breast
CPT/HCPCS: 96374; J1642; J2405; J2550

== ENCOUNTER → 2018-09-16 | Outpatient (CLI) | payer BC | LOC: FIMAGING 10:26 | PROVIDERS: ATTEND Internal Medicine Hematology & Oncology | DX: Z13.820 Encounter for screening for osteoporosis (principal); M85.89 Other specified disorders of bone density and structure, multiple sites; Z85.3 Personal history of malignant neoplasm of breast ==

== ENCOUNTER 2018-11-15 09:08 | Day surgery (SDC) | payer BC ==
[~2018-11-15 09:08] MED LIST changes: -BUPIVACAINE 0.5% 10 ML SDV ONE; +FLUMAZENIL 0.5 MG/5 ML MDV IVP PRN; -LIDOCAINE 1% 300 MG/30 ML SDV ONE; +MEPERIDINE 25 MG/ML SYR IVP PRN; +MIDAZOLAM 2 MG/2 ML VIAL IVP PRN; +NALOXONE HCL 0.4 MG/ML INJ IVP PRN; -THROMBIN (BOVINE) 5,000 UNIT VIAL TP ONE; +fentaNYL 100 MCG/2 ML INJ IVP PRN
[2018-11-15] MEDS ORDERED: NS 1,000 ML IV SCH (09:15)
--- NOTE | 2018-11-15 10:39 | PDRADPRE ---
Radiology History & Physical Indication for procedure: cancer (Port removal - completion of therapy) Home medications: Doxepin HCl [SINEquan 10 MG (*)] 10 mg PO HS 06/14/18 [Last Taken 06/13/18] LORazepam [Ativan (*)] 1 mg PO DAILY PRN 06/14/18 [Last Taken Unknown] Ondansetron [Ondansetron Odt] 4 mg PO Q6 PRN 06/14/18 [Last Taken 06/13/18] Allergies/Adverse Reactions: No Known Allergies Allergy (Verified 07/28/18 06:56) Mental status: A&Ox3 Heart exam: regular rate and rhythm Lungs exam: clear to auscultation Mallampati Score: Class 2
--- NOTE | 2018-11-15 10:39 | PDPROPOC ---
Sedation Plan of Care Sedation Plan of Care: vital signs stable, mental status noted, patient educated of risks, benefits, alternatives, patient can tolerate sedation ASA Classification: ASA 2 Planned drugs: fentanyl, midazolam Mallampati Score: Class 2 Mallampati Reference Image: Patient passed 3-3-2 rule?: Yes
[2018-11-15] MEDS ORDERED: LIDO/EPI 1% **for epidural** 30 ML SDV ONE (10:45)
[2018-11-15] MEDS ORDERED: MIDAZOLAM 2 MG/2 ML VIAL ONE (10:47)
[2018-11-15] MEDS ORDERED: fentaNYL 100 MCG/2 ML INJ ONE (10:47)
[2018-11-15] MEDS ORDERED: ACETAMINOPHEN 325 MG TAB PO PRN (11:17)
[2018-11-15] MEDS ORDERED: ONDANSETRON 4 MG/2 ML VIAL IVP PRN (11:17)
--- NOTE | 2018-11-15 11:18 | PDRADPN ---
Radiology Procedure Note Date of Procedure: 11/15/18 Radiologist: Adolfo Ocasio Pre-op Diagnosis: Cancer Post-op Diagnosis: Cancer Indication: Completion of therapy Procedure: Chest port removal Finding(s): No gross evidence of infection Inf/Abcess present in the surg proc area at time of surgery?: No
[2018-11-15 11:33] VITALS: BP 116/73
== END 2018-11-15 12:08 | disposition home or self-care (01) ==
LOC: FIMAGING 09:08
PROVIDERS: ATTEND Internal Medicine Hematology & Oncology
PROC: 0JPT0XZ Removal of Tunneled Vascular Access Device from Trunk Subcutaneous Tissue and Fascia, Open Approach (ICD-10-PCS; principal; 2018-11-15 11:31)
DX: C50.811 Malignant neoplasm of overlapping sites of right female breast (principal); Z15.01 Genetic susceptibility to malignant neoplasm of breast; Z17.0 Estrogen receptor positive status [ER+]
CPT/HCPCS: J2250; J3010